=== PATIENT | male | born 1955 | race African-American/Black ===

== ENCOUNTER 2017-09-17 09:14 | Day surgery (SDC) | payer BC, OTHER ==
[2017-09-15 09:23] LABS: Absolute Lymphocytes (CBC) 1.5 K/uL (0.7-4.9); Absolute Monocytes 0.5 K/uL (0.1-1.3); Absolute Neutrophil 4.8 K/uL (1.8-8.0); Basophils % 0.5 % (0-1.3); Eosinophils % 2.7 % (0-4.4); Hematocrit 39.4 % (39.6-49.0); MCH 25.6 pg (27.0-35.0); MCV 79.8 fL (80-100); MPV 8.3 fL (7.6-11.3); Monocytes % 7.1 % (3.3-12.3); RBC Red Blood Cell Count 4.94 M/uL (4.33-5.43)
[2017-09-15 10:00] LABS: BUN Blood Urea Nitrogen 9 mg/dL (6-20)
[2017-09-15 10:01] LABS: Potassium 4.2 mEq/L (3.6-5.0)
--- NOTE | 2017-09-15 16:30 | EKG ---
Test Date: 2017-09-15 Test Time: 08:57:42 Job Training Specialist: DARIELA MEASUREMENT RESULTS: Intervals: Rate: 77 OK: 176 QRSD: 76 QT: 368 QTc: 416 [place]: P: 66 OK: 176 QRS: 55 T: 50 INTERPRETIVE STATEMENTS: Normal sinus rhythm Possible Left atrial enlargement Borderline ECG No previous ECG available for comparison Electronically Signed On 09-15-17 16:29:37 CDT by Silver Driver
[~2017-09-17 09:14] MED LIST: CEFAZOLIN/SWI 2gm 2 GM/20 ML SYR IV SCH
[2017-09-17] MEDS ORDERED: Ringers Lactate 1,000 ML IV ONE (09:25)
[2017-09-17] MEDS ORDERED: CEFAZOLIN/SWI 1gm 1 GM/10 ML SYR ONE (09:25)
[2017-09-17] MEDS ORDERED: MIDAZOLAM HCL 2 MG/2 ML INJ ONE (10:07)
[2017-09-17] MEDS ORDERED: LIDOCAINE 1% MPF 5 ML VIAL ONE (10:07)
[2017-09-17] MEDS ORDERED: PROPOFOL 200 MG/20 ML VIAL IV ONE (10:07)
[2017-09-17] MEDS ORDERED: ROCURONIUM 50 MG/5 ML VIAL IV ONE (10:08)
[2017-09-17] MEDS ORDERED: FENTANYL CITR 250 MCG/5 ML ONE (10:09)
[2017-09-17] MEDS: BUPIVACA 0.25%/EPI 0.0005%/PF 30 ML VIAL ONE ×2 (10:41→10:50)
[2017-09-17] MEDS ORDERED: KETOROLAC 30 MG/ML INJ ONE (10:44)
[2017-09-17] MEDS ORDERED: ONDANSETRON 4 MG/2 ML VIAL ONE (10:45)
--- NOTE | 2017-09-17 11:40 | P.OP ---
Preoperative diagnosis: LEFT inguinal hernia Postoperative diagnosis: LEFT inguinal hernia Primary procedure: open LEFT inguinal hernia repair with mesh Anesthesia: GETA + Local Estimated blood loss: <10cc Specimen: Cord Lipoma Findings: Large indirect inguinal hernia , external oblique aponeurosis very thin Complications: None Implants: Large plug and patch hernia repair system Transferred to: Recovery Room Condition: Good
[2017-09-17] MEDS ORDERED: HYDROCODONE/APAP 5/325 MG TAB ONE (13:13)
--- NOTE | 2017-09-17 23:35 | OP ---
Date of Procedure: 09/17/2017 Surgeon: Venancio Wu MD, Preoperative Diagnosis: Left inguinal hernia. Postoperative Diagnosis: Left inguinal hernia. Procedure Performed: Open left inguinal hernia repair with mesh, plug and patch repair system. Anesthesia: General endotracheal plus local with 0.25% Marcaine with epinephrine. Estimated Blood Loss: Less than 10 cc. Specimen: Cord lipoma. Findings: Large indirect inguinal hernia and external oblique aponeurosis was thin and almost oblite rated. Complications: None. Implants: Large plug and patch hernia repair system. Disposition: Transferred to recovery room in good condition. Procedure In Detail: After informed consent was obtained, the patient was brought to the operating r oom, prepped and draped in the usual sterile fashion. After adequate anesthesia was achieved, the ar ea of the left inguinal region was anesthetized appropriately and incised with a 15-blade down throug h subcutaneous tissues. Dissection continued down through Camper's fat and Ulisses's fascia to expose the external oblique aponeurosis. This was opened in a flap type creating skin flaps over the top o f this. However, the external oblique aponeurosis was found to be thin, friable, and almost oblitera venancio in some regions as it was paper thin. The cord structures were then identified and encircled wit h a David drain. After this was performed, a cord lipoma was noted to be found on the spermatic co rd structures adjacent to the indirect inguinal hernia which was appreciated, which had intestinal co ntents. The hernia sac was opened. The intestinal contents were returned to the normal anatomic pos ition. After placing the patient in Trendelenburg position, the cord lipoma was removed and ligated using 0 silk suture and electrocautery, sent off for pathologic examination. After the area was insp ected for hemostasis, the large mesh was determined to be optimal for the plug and patch repair syste m through the indirect inguinal deep ring. The deep ring was sized appropriately and using 4 interru pted 0 PDS sutures, securing to lateral edges, taking very thin bites, the mesh was secured to the no rmal anatomic position after returning the abdominal contents back to the normal anatomic position. The mesh was held in place without any additional maneuvers and was in a good anatomic position. The area was copiously irrigated multiple times and cleared and dried until clear. The patch system was then brought in, sized appropriately around the spermatic cord structures, securing it medially at t he pubic tubercle and on the medial and lateral shelving edge reconstituting the deep inguinal ring a s well overlying the previously placed plug system. After this was oriented properly and secured, th e area was copiously irrigated once again and the Camper's fat, Ulisses's fascia, and the external obl ique aponeurosis was closed en bloc over the top of this as the external oblique aponeurosis was esse ntially obliterated. The ilioinguinal and iliohypogastric nerves were protected throughout and the C amper's fat, Ulisses's fascia, and external oblique aponeurosis were closed with a running 3-0 Vicryl suture. The deep subcutaneous layer was then closed with interrupted 3-0 Vicryl with good approximat ion. The skin was then irrigated once again and closed with a 4-0 Monocryl in a running fashion. De rmabond placed over top. The patient tolerated the procedure well without evidence of complication a nd transferred to PACU in good condition. All counts were correct at the end of the case. NAVIN/COLETTE Voice ID: [id number] Report ID: [id number]
== END 2017-09-17 13:57 | disposition home or self-care (01) ==
LOC: OR 09:14
PROVIDERS: ATTEND Surgery
PROC: 0YU60JZ Supplement Left Inguinal Region with Synthetic Substitute, Open Approach (ICD-10-PCS; principal; 2017-09-17 10:30)
DX: K40.90 Unilateral inguinal hernia, without obstruction or gangrene, not specified as recurrent (principal); Z80.0 Family history of malignant neoplasm of digestive organs; Z80.8 Family history of malignant neoplasm of other organs or systems
CPT/HCPCS: 36415; 80051; 82565; 84520; 85025; 88304; 93005; J0690; J2250; J2405

== ENCOUNTER 2022-04-21 08:20 | Observation (INO) | payer BC, OTHER ==
[2022-04-18 11:50] LABS: Absolute Lymphocytes (CBC) 1.8 K/uL (0.7-4.9); Hematocrit 38.4 % (39.6-49.0); Lymphocytes % 20.9 % (15.3-44.8); MCV 80.7 fL (80-100); MPV 7.7 fL (7.6-11.3); RBC Red Blood Cell Count 4.76 M/uL (4.33-5.43)
[2022-04-18 12:03] LABS: Potassium 3.9 mmol/L (3.5-5.1)
[2022-04-21] MEDS ORDERED: Ringers Lactate 1,000 ML IV ONE (09:13)
--- NOTE | 2022-04-21 09:26 | P.HP ---
Date of Service: 04/21/22 PC: This 66-year-old male presents for a laparoscopic repair of recurrent left inguinal hernia. HPC: Patient has been having pain and discomfort for the last few months. Describes as a sharp pinching affect as well as pressure and a bulge in his left groin. On work-up was found to have recurrence of his left inguinal hernia. PSHx: Hernia surgery as described PMHx: Hypertension, CAD Social Hx: No known allergies Sys R: No cough, wheeze, shortness of breath. No chest pain or palpitations. Denies any urinary complaints O/E: Awake alert vital signs are stable HEENT: Within normal limits Chest: Air entry equal bilaterally Abd: Soft nontender in the left groin has positive cough impulse and reducible bulge in that area [place]: Intact Data: Has recurrent left inguinal hernia Impression: Recurrent left inguinal hernia Plan: I will taken the operating room for laparoscopic possible open repair of this recurrent left inguinal hernia. The risks of this procedure have been discussed. The possibility of bleeding, infection, injury to bowel blood vessels and surrounding structures were outlined. Possible recurrence and chronic pain were also described. He understands and wants us to proceed.
[2022-04-21] MEDS: CEFAZOLIN SODIUM 1 GM/VIAL ONE ×2 (09:41→10:21)
[2022-04-21] MEDS ORDERED: ROCURONIUM 50 MG/5 ML VIAL IV ONE (10:00)
[2022-04-21] MEDS ORDERED: FENTANYL CITR 100 MCG/2 ML ONE (10:00)
[2022-04-21] MEDS ORDERED: LIDOCAINE 2% MPF 5 ML VIAL ONE (10:00)
[2022-04-21] MEDS ORDERED: MIDAZOLAM HCL 2 MG/2 ML INJ ONE (10:00)
[2022-04-21] MEDS ORDERED: ONDANSETRON 4 MG/2 ML VIAL ONE (10:00)
[2022-04-21] MEDS ORDERED: propofoL 200 MG/20 ML VIAL IV ONE (10:00)
[2022-04-21 10:08] LABS: SARS-CoV-2 Antigen Rapid Res Negative (Negative)
[2022-04-21] MEDS ORDERED: KETOROLAC 30 MG/ML INJ ONE (10:39)
[2022-04-21] MEDS ORDERED: dexAMETHasone 10 MG/ML VIAL ONE (10:39)
[2022-04-21] MEDS ORDERED: EPHEDRINE SULF 50 MG/ML VIAL ONE (10:56)
[2022-04-21] MEDS ORDERED: GLYCOPYRROLATE 0.2 MG/ML SYR ONE (11:33)
[2022-04-21] MEDS ORDERED: NEOSTIGMINE 1 MG/ML -5 ML ONE (11:33)
--- NOTE | 2022-04-21 11:50 | P.OP ---
Preoperative diagnosis: Recurrent left inguinal hernia Postoperative diagnosis: Recurrent left indirect inguinal hernia Primary procedure: Laparoscopic repair of recurrent left indirect inguinal hernia open [SERGO] Anesthesia: General Estimated blood loss: Less than 10 cc Specimen: None sent Operative Technique: The patient brought the operating room and placed supine on the table. After the induction of adequate general endotracheal anesthesia, the area of the abdomen was prepped with a DuraPrep solution, a Tomlinson catheter was inserted, and he was draped in usual aseptic manner. Attention was turned towards the umbilicus. After injecting with 0.25% Marcaine, a subumbilical incision was made. This was brought down through the skin and subcutaneous tissue. The Visiport was now used to enter the peritoneal cavity and created pneumoperitoneum to approximately 12 mmHg. With the patient placed in Trendelenburg, we will visualize the left and right inguinal areas. On the right side it was found to be intact, there was no evidence of any hernia. Attention was turned towards the left. We could see that he had a recurrent indirect inguinal hernia on the left side. The peritoneum was opened from well lateral towards medial. This superior flap was now dissected downwards to expose the spermatic cord, our inguinal hernia sac, and the previous placed plug. The tissue was dissected away from this area. The hernia sac was dissected off of the previous repair. Having cleared the area well we were now able to place a piece of left medium mesh into the peritoneal cavity. This was positioned to anchor it just medial to the Kaushal's ligament. This was held in place with a tacker. Another tack was placed out laterally. One was placed inferiorly gently just to hold the inferior edge down. The peritoneum was now grasped and reapproximated in its normal anatomical position. Good coverage of the mesh having been achieved, there was inspected for air and required hemostasis. This having been done the pneumoperitoneum was fully collapsed, the trochars removed, and the umbilical trocar defect was approximated with an absorbable suture. Luxora were then applied to the skin. At the end of the procedure the patient was in a stable condition when sent to the recovery room. Needle sponge instrument count were correct. No drains were placed. Complications: None Transferred to: Recovery Room Condition: Good
[2022-04-21] MEDS ORDERED: HYDROCODONE/APAP 7.5/325 MG TAB PO PRN (12:24)
[2022-04-21] MEDS ORDERED: ONDANSETRON 4 MG/2 ML VIAL IV PRN (12:24)
--- OUTSIDE RECORDS SUMMARY | 2022-04-21 13:12 | XMS REPORT | Continuity of Care Document ---
:1955 Author Organization [facility] t Address [address] [place] [address] Care Team Providers Name Role Phone Contreras CALVILLO, Garrick Primary Care Physician [phone] Yvonne PT, Jenniffer T Attending Clinician Unavailable Leana Obregon MD Attending Clinician LEANA OBREGON Attending Clinician Unavailable Chrystal Archer PTA Attending Clinician Unavailable Elo Lopez PTA Attending Clinician Unavailable HANS BHAGAT Attending Clinician Unavailable Vaccine, [facility] Attending Clinician Unavailable Hans Bhagat DO Attending Clinician Doctor Unassigned, [place] Attending Clinician Unavailable Radiology Attending Clinician Unavailable RADIOLOGY Attending Clinician Unavailable KAYODE CHAPIN Attending Clinician Unavailable Kayode Chapin DO Attending Clinician MOI CAST Attending Clinician Unavailable Moi Cast MD Attending Clinician Nurse, [facility]c Pob Immunization Attending Clinician Unavailable MOI CAST Admitting Clinician Unavailable Moi Cast MD Admitting Clinician KAYODE CHAPIN Admitting Clinician Unavailable Payers Payer Name Policy Type Policy Number Effective Date Expiration Date S [place] Problems Condition Condition Condition Status Onset Resolution Last Treating Co mments Source Name Details Category Date Date Treatment Clinician Date 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 0-03 ity of shoulder shoulder 00:00: [place] pain pain 00 Medical Branch Neck pain Neck pain Disease Active 2021-06 Uni vers 0-03 ity of 00:00: [place] 00 Medical Branch Decreased Decreased Disease Active 2021-06 Uni vers range of range of 0-03 [place] of motion [place] 00 [place] shoulder shoulder Branch Allergies, Adverse Reactions, Alerts Allergy Allergy Status Severity Reaction(s) Onset Inactive Treating Comm ents Source Name Type Date Date Clinician Sulfa Propensi Active (Sulfona ty to 5-11 mide adverse 00:00: Antibiot reaction 00 ics) to drug NO KNOWN Drug Active Univers ALLERGIE Class ity of S [facility] Social History Social Habit Start Date Stop Date Quantity Comments Source History SDOH University o f Alcohol Frequency [place] [facility] ed[facility] History SDOH University o f Alcohol Std [place] [facility] Drinks Branch History SDOH University o f Alcohol Binge [place] [facility] al Branch Exposure to 2022-01-21 2022-01-31 Not sure [facility] SARS-CoV-2 00:00:00 16:04:00 [facility] [place] [facility] (event) Branch Alcohol intake 2021-12-15 2021-12-15 Current drinker Unive rsity of 00:00:00 00:00:00 of alcohol [facility] [place] [facility] (finding) [place] Tobacco use and 2017-09-02 2017-09-02 Smokeless tobacco Un iversity of exposure 00:00:00 00:00:00 non-user [facility] Alcohol Comment 2017-09-02 2017-09-02 Social Drinker Unive rsity of 00:00:00 00:00:00 [facility] Sex [birth year] Universit y of 00:00:00 00:00:00 [facility] Smoking Status Start Date Stop Date Source Never smoked tobacco [facility] [place] [facility] Medications Ordered Filled Start Stop Current Ordering Indication Dosage Frequency Signature Comments Components Source Medication Medication Date Date Medication? Clinician (SIG) Name Name TAKE 2021-06 No TABLET BY 0-14 MOUTH TWICE 00:00: DAILY 00 TAKE 2021-06 No TABLET BY 0-14 MOUTH TWICE 00:00: DAILY 00 PEG-3350/EL 202-0 No ECTROLYTES 9-02 236 GM SOLR 00:00: 00 PEG-3350/EL 2021-0 No ECTROLYTES 9-02 236 GM SOLR 00:00: 00 PEG-3350/EL 2-0 No ECTROLYTES 9-02 236 GM SOLR 00:00: 00 &lt 2022-0 No 100 7-25 00:00: 00 APPLY 2022-0 No TOPICALLY 7-25 TO THE 00:00: AFFECTED 00 AREA DAILY &lt 2-0 No 500 7-25 00:00: 00 TAKE ONE OR 2021-0 No 4 TWO TABLETS 7-25 BY MOUTH 15 00:00: MINUTES 00 PRIOR TO THE PREP DOSE &lt 2021-0 No 100 7-25 00:00: 00 APPLY 2022-0 No TOPICALLY 7-25 TO THE 00:00: AFFECTED 00 AREA DAILY &lt 2022-0 No 100 7-25 00:00: 00 APPLY 2022-0 No TOPICALLY 7-25 TO THE 00:00: AFFECTED 00 AREA DAILY &lt 2022-0 No 500 7-25 00:00: 00 TAKE ONE OR 2021-0 No 4 TWO TABLETS 7-25 BY MOUTH 15 00:00: MINUTES 00 PRIOR TO THE PREP DOSE &lt 2-0 No 500 7-25 00:00: 00 TAKE ONE OR 2021-0 No 4 TWO TABLETS 7-25 BY MOUTH 15 00:00: MINUTES 00 PRIOR TO THE PREP DOSE &lt 2-0 No 100 7-25 00:00: 00 APPLY 2022-0 No TOPICALLY 7-25 TO THE 00:00: AFFECTED 00 AREA DAILY &lt 2-0 No 500 7-25 00:00: 00 TAKE ONE OR 2021-0 No 4 TWO TABLETS 7-25 BY MOUTH 15 00:00: MINUTES 00 PRIOR TO THE PREP DOSE acetaminoph 2021-0 2021- No 1000mg 1,000 mg, Univers en 18 07-18 Oral, ity of (TYLENOL) 05:15: 05:05 ONCE, 1 [place] tablet 00 :00 dose, On Medical 1,000 mg Mon Branch 12/16/21 at 0015, RACHELL ibuprofen 0 2021- No 600mg 600 mg, Uni vers (IBU) 12-16 Oral, ity of tablet 600 03:45: 03:47 ONCE, 1 [place] mg 00 :00 dose, On Medical Sun Branch 12/15/21 at 2245, RACHELL psyllium 2021- No 1{packe Take 1 Uni vers (METAMUCIL 12-15 t} Packet by ity of FIBER 22:41: 00:00 mouth [place] SINGLES) 24 :00 daily. Medical 3.4 gram Branch packet chlorphenir Yes [id number] 4mg Take 1 [facility] amine 4 mg 7-17 tablet by ity of tablet 00:00: mouth [place] 00 every 6 Medical (six) Branch hours as needed for Allergies or Runny nose. calcium/mag 0 Yes [id number] 1{each} Take 1 Univers nesium/zinc 7-17 Each by ity o f (CALCIUM-MA 00:00: mouth [place] GNESUIUM-ZI 00 daily. Medica l [place]) Branch 333-133-5 mg Tab benzonatate 0 Yes [id number] 100mg Take 1 Univers 100 mg 7-17 capsule by ity of capsule 00:00: mouth 3 [place] 00 (three) Medical times Branch daily as needed for Cough. nirmatrelvi 0 Yes [id number] 3{tbl} Take 3 Univers r-ritonavir 7-17 tablets by it y of (PAXLOVID, 00:00: mouth in [place] EUA,) 150 00 the Medical mg x 2- 100 morning Branc h mg tablet and 3 tablets in the evening. chlorphenir 0 Yes [id number] 4mg Take 1 Univers amine 4 mg 7-17 tablet by ity of tablet 00:00: mouth [place] 00 every 6 Medical (six) Branch hours as needed for Allergies or Runny nose. calcium/mag 2021-0 Yes [id number] 1{each} Take 1 Univers nesium/zinc 7-17 Each by ity o f (CALCIUM-MA 00:00: mouth [place] GNESUIUM-ZI 00 daily. Medica l [place]) Branch 333-133-5 mg Tab benzonatate 2022-0 Yes [id number] 100mg Take 1 Univers 100 mg 7-17 capsule by ity of capsule 00:00: mouth 3 [place] 00 (three) Medical times Branch daily as needed for Cough. nirmatrelvi 2021-0 Yes [id number] 3{tbl} Take 3 Univers r-ritonavir 7-17 tablets by it y of (PAXLOVID, 00:00: mouth in [place] EUA,) 150 00 the Medical mg x 2- 100 morning Branc h mg tablet and 3 tablets in the evening. chlorphenir 2022-0 Yes [id number] 4mg Take 1 [facility] amine 4 mg 7-17 tablet by ity of tablet 00:00: mouth [place] 00 every 6 Medical (six) Branch hours as needed for Allergies or Runny nose. calcium/mag 2-0 Yes [id number] 1{each} Take 1 Univers nesium/zinc 7-17 Each by ity o f (CALCIUM-MA 00:00: mouth [place] GNESUIUM-ZI 00 daily. Medica l [place]) Branch 333-133-5 mg Tab benzonatate 2021-0 Yes [id number] 100mg Take 1 Univers 100 mg 7-17 capsule by ity of capsule 00:00: mouth 3 [place] 00 (three) Medical times Branch daily as needed for Cough. nirmatrelvi 2021-0 Yes [id number] 3{tbl} Take 3 Univers r-ritonavir 7-17 tablets by it y of (PAXLOVID, 00:00: mouth in [place] EUA,) 150 00 the Medical mg x 2- 100 morning Branc h mg tablet and 3 tablets in the evening. chlorphenir 2022-0 Yes [id number] 4mg Take 1 [facility] amine 4 mg 7-17 tablet by ity of tablet 00:00: mouth [place] 00 every 6 Medical (six) Branch hours as needed for Allergies or Runny nose. calcium/mag 2-0 Yes [id number] 1{each} Take 1 Univers nesium/zinc 7-17 Each by ity o f (CALCIUM-MA 00:00: mouth [place] GNESUIUM-ZI 00 daily. Medica l [place]) Branch 333-133-5 mg Tab benzonatate 2022-0 Yes [id number] 100mg Take 1 Univers 100 mg 7-17 capsule by ity of capsule 00:00: mouth 3 [place] 00 (three) Medical times Branch daily as needed for Cough. nirmatrelvi 2021-0 Yes [id number] 3{tbl} Take 3 Univers r-ritonavir 7-17 tablets by it y of (PAXLOVID, 00:00: mouth in [place] EUA,) 150 00 the Medical mg x 2- 100 morning Branc h mg tablet and 3 tablets in the evening. chlorphenir 2021-0 Yes [id number] 4mg Take 1 [facility] amine 4 mg 7-17 tablet by ity of tablet 00:00: mouth [place] 00 every 6 Medical (six) Branch hours as needed for Allergies or Runny nose. calcium/mag 2021-0 Yes [id number] 1{each} Take 1 Univers nesium/zinc 7-17 Each by ity o f (CALCIUM-MA 00:00: mouth [place] GNESUIUM-ZI 00 daily. Medica l [place]) Branch 333-133-5 mg Tab benzonatate 2021-0 Yes [id number] 100mg Take 1 Univers 100 mg 7-17 capsule by ity of capsule 00:00: mouth 3 [place] 00 (three) Medical times Branch daily as needed for Cough. nirmatrelvi 0 Yes [id number] 3{tbl} Take 3 Univers r-ritonavir 7-17 tablets by it y of (PAXLOVID, 00:00: mouth in [place] EUA,) 150 00 the Medical mg x 2- 100 morning Branc h mg tablet and 3 tablets in the evening. chlorphenir 2021-0 Yes [id number] 4mg Take 1 [facility] amine 4 mg 7-17 tablet by ity of tablet 00:00: mouth [place] 00 every 6 Medical (six) Branch hours as needed for Allergies or Runny nose. calcium/mag 2021-0 Yes [id number] 1{each} Take 1 Univers nesium/zinc 7-17 Each by ity o f (CALCIUM-MA 00:00: mouth [place] GNESUIUM-ZI 00 daily. Medica l [place]) Branch 333-133-5 mg Tab benzonatate 2021-0 Yes [id number] 100mg Take 1 Univers 100 mg 7-17 capsule by ity of capsule 00:00: mouth 3 [place] 00 (three) Medical times Branch daily as needed for Cough. nirmatrelvi 2021-0 Yes [id number] 3{tbl} Take 3 Univers r-ritonavir 7-17 tablets by it y of (PAXLOVID, 00:00: mouth in [place] EUA,) 150 00 the Medical mg x 2- 100 morning Branc h mg tablet and 3 tablets in the evening. chlorphenir 2021-0 Yes [id number] 4mg Take 1 [facility] amine 4 mg 7-17 tablet by ity of tablet 00:00: mouth [place] 00 every 6 Medical (six) Branch hours as needed for Allergies or Runny nose. calcium/mag 2021-0 Yes [id number] 1{each} Take 1 Univers nesium/zinc 7-17 Each by ity o f (CALCIUM-MA 00:00: mouth [place] GNESUIUM-ZI 00 daily. Medica l [place]) Branch 333-133-5 mg Tab benzonatate 2021-0 Yes [id number] 100mg Take 1 Univers 100 mg 7-17 capsule by ity of capsule 00:00: mouth 3 [place] 00 (three) Medical times Branch daily as needed for Cough. nirmatrelvi 2021-0 Yes [id number] 3{tbl} Take 3 Univers r-ritonavir 7-17 tablets by it y of (PAXLOVID, 00:00: mouth in [place] EUA,) 150 00 the Medical mg x 2- 100 morning Branc h mg tablet and 3 tablets in the evening. chlorphenir 2021-0 Yes [id number] 4mg Take 1 [facility] amine 4 mg 7-17 tablet by ity of tablet 00:00: mouth [place] 00 every 6 Medical (six) Branch hours as needed for Allergies or Runny nose. calcium/mag 2021-0 Yes [id number] 1{each} Take 1 Univers nesium/zinc 7-17 Each by ity o f (CALCIUM-MA 00:00: mouth [place] GNESUIUM-ZI 00 daily. Medica l [place]) Branch 333-133-5 mg Tab benzonatate 2021-0 Yes [id number] 100mg Take 1 Univers 100 mg 7-17 capsule by ity of capsule 00:00: mouth 3 [place] 00 (three) Medical times Branch daily as needed for Cough. nirmatrelvi 2021-0 Yes [id number] 3{tbl} Take 3 Univers r-ritonavir 7-17 tablets by it y of (PAXLOVID, 00:00: mouth in [place] EUA,) 150 00 the Medical mg x 2- 100 morning Branc h mg tablet and 3 tablets in the evening. chlorphenir 2022-0 Yes [id number] 4mg Take 1 [facility] amine 4 mg 7-17 tablet by ity of tablet 00:00: mouth [place] 00 every 6 Medical (six) Branch hours as needed for Allergies or Runny nose. calcium/mag 2022-0 Yes [id number] 1{each} Take 1 Univers nesium/zinc 7-17 Each by ity o f (CALCIUM-MA 00:00: mouth [place] GNESUIUM-ZI 00 daily. Medica l [place]) Branch 333-133-5 mg Tab benzonatate 2021-0 Yes [id number] 100mg Take 1 Univers 100 mg 7-17 capsule by ity of capsule 00:00: mouth 3 [place] (three) Medical times Branch daily as needed for Cough. nirmatrelvi 2021-0 Yes [id number] 3{tbl} Take 3 Univers r-ritonavir 7-17 tablets by it y of (PAXLOVID, 00:00: mouth in [place] EUA,) 150 00 the Medical mg x 2- 100 morning Branc h mg tablet and 3 tablets in the evening. chlorphenir 2-0 Yes [id number] 4mg Take 1 [facility] amine 4 mg 7-17 tablet by ity of tablet 00:00: mouth [place] 00 every 6 Medical (six) Branch hours as needed for Allergies or Runny nose. calcium/mag 2-0 Yes [id number] 1{each} Take 1 Univers nesium/zinc 7-17 Each by ity o f (CALCIUM-MA 00:00: mouth [place] GNESUIUM-ZI 00 daily. Medica l [place]) Branch 333-133-5 mg Tab benzonatate 2022-0 Yes [id number] 100mg Take 1 Univers 100 mg 7-17 capsule by ity of capsule 00:00: mouth 3 [place] 00 (three) Medical times Branch daily as needed for Cough. nirmatrelvi 2022-0 Yes [id number] 3{tbl} Take 3 Univers r-ritonavir 7-17 tablets by it y of (PAXLOVID, 00:00: mouth in [place] EUA,) 150 00 the Medical mg x 2- 100 morning Branc h mg tablet and 3 tablets in the evening. chlorphenir 2021-0 Yes [id number] 4mg Take 1 [facility] amine 4 mg 7-17 tablet by ity of tablet 00:00: mouth [place] 00 every 6 Medical (six) Branch hours as needed for Allergies or Runny nose. calcium/mag 2021-0 Yes [id number] 1{each} Take 1 Univers nesium/zinc 7-17 Each by ity o f (CALCIUM-MA 00:00: mouth [place] GNESUIUM-ZI 00 daily. Medica l [place]) Branch 333-133-5 mg Tab benzonatate 2021-0 Yes [id number] 100mg Take 1 Univers 100 mg 7-17 capsule by ity of capsule 00:00: mouth 3 [place] 00 (three) Medical times Branch daily as needed for Cough. nirmatrelvi 2021-0 Yes [id number] 3{tbl} Take 3 Univers r-ritonavir 7-17 tablets by it y of (PAXLOVID, 00:00: mouth in [place] EUA,) 150 00 the Medical mg x 2- 100 morning Branc h mg tablet and 3 tablets in the evening. chlorphenir 2021-0 Yes [id number] 4mg Take 1 Univers amine 4 mg 7-17 tablet by ity of tablet 00:00: mouth [place] 00 every 6 Medical (six) Branch hours as needed for Allergies or Runny nose. calcium/mag 2021-0 Yes [id number] 1{each} Take 1 Univers nesium/zinc 7-17 Each by ity o f (CALCIUM-MA 00:00: mouth [place] GNESUIUM-ZI 00 daily. Medica l [place]) Branch 333-133-5 mg Tab benzonatate 2021-0 Yes [id number] 100mg Take 1 Univers 100 mg 7-17 capsule by ity of capsule 00:00: mouth 3 [place] 00 (three) Medical times Branch daily as needed for Cough. nirmatrelvi 2021-0 Yes [id number] 3{tbl} Take 3 Univers r-ritonavir 7-17 tablets by it y of (PAXLOVID, 00:00: mouth in [place] EUA,) 150 00 the Medical mg x 2- 100 morning Branc h mg tablet and 3 tablets in the evening. vitamin 2021- No [id number] 1{tbl} Take 1 Univers D3-folic 7-17 08-17 tablet by ity o f acid 125 00:00: 04:59 mouth [place] mcg (5,000 00 :00 daily for Medi anahi unit)-1 mg 30 days. Branc h Tab ciclopirox No 1% 0.77 % 09-25 topical 00:00: cream 00 ciclopirox No 1% 0.77 % - topical 00:00: cream 00 Dose No Unknown 09-25 00:00: 00 Dose 0 No Unknown 09-25 00:00: 00 water for Yes PRN, Univers irrigation 07-31 Starting ity o f irrigation 16:24: on Thu [place] solution 00 07/31/21 at Medica l 1024, Branch Until Discontinu ed, Routine, Intra-op simethicone Yes PRN, Univer s (GAS RELIEF 07-31 Starting ity of (SIMETHICON 16:24: on [place] E)) 40 00 07/31/21 at Medical mg/0.6 mL 1024, Branch drops Until Discontinu ed, Routine, Intra-op water for 2021- No PRN, Univers irrigation 07-31 Starting ity of irrigation 16:24: 19:16 on Thu [place] solution 00 :26 07/31/21 at Medica l 1024, Branch Until Thu07/31/21 at 1316, Routine, Intra-op simethicone 2021- No PRN, Unive rs (GAS RELIEF 07-31 Starting ity of (SIMETHICON 16:24: 19:16 on Thu [place] as E)) 40 00 :26 07/31/21 at Medical mg/0.6 mL 1024, Branch drops Until Thu07/31/21 at 1316, Routine, Intra-op lactated 2021- No 1000mL at 42 Unive rs ringers IV 3-02 03-02 mL/hr, ity of infusion 15:00: 14:56 1,000 mL, [place] as 1,000 mL 00 :00 IV Medical Infusion, Branch ONCE, 1 dose, On Thu07/31/21 at 0900, Routine, Endo Pre-op lactated 2021-0 2021- No 1000mL at 42 Unive rs ringers IV 3-02 03-02 mL/hr, ity of infusion 15:00: 14:56 1,000 mL, [place] as 1,000 mL 00 :00 IV Medical Infusion, Branch ONCE, 1 dose, On Thu07/31/21 at 0900, Routine, Endo Pre-op psyllium 2021-0 Yes 1{packe Take 1 Univ ers (METAMUCIL 3-02 t} Packet by ity of FIBER 11:16: mouth [place] SINGLES) 24 daily. Medical 3.4 gram Branch packet psyllium 2021-0 Yes 1{packe Take 1 Univ ers (METAMUCIL 3-02 t} Packet by ity of FIBER 11:16: mouth [place] SINGLES) 24 daily. Medical 3.4 gram Branch packet psyllium 2021-0 Yes 1{packe Take 1 Univ ers (METAMUCIL 3-02 t} Packet by ity of FIBER 11:16: mouth [place] SINGLES) 24 daily. Medical 3.4 gram Branch packet ciclopirox 2021-0 No 1% 0.77 % -12 topical 00:00: cream 00 ciclopirox 2021-0 No 1% 0.77 % -12 topical 00:00: cream 00 Dose 2021-0 No Unknown -12 00:00: 00 Dose 2021-0 No Unknown -12 00:00: 00 naproxen 2020-06 Yes [id number] 550mg Take 1 Univers sodium 1-11 tablet by ity of (ANAPROX 00:00: mouth 2 [place] DS) 550 mg 00 (two) Medical tablet times Branch daily with meals. methylPREDN 2020-06 Yes [id number] Take by Univers ISolone 1-11 mouth ity of (MEDROL, 00:00: SEE-INSTRU [place] THALIA,) 4 mg 00 CTIONS. Medica l tablets follow Branch package directions naproxen 2020-06 Yes [id number] 550mg Take 1 Univers sodium 1-11 tablet by ity of (ANAPROX 00:00: mouth 2 [place] DS) 550 mg 00 (two) Medical tablet times Branch daily with meals. methylPREDN 2020-06 Yes [id number] Take by Univers ISolone 1-11 mouth ity of (MEDROL, 00:00: SEE-INSTRU [place] THALIA,) 4 mg 00 CTIONS. Medica l tablets follow Branch package directions naproxen 2020-06 Yes [id number] 550mg Take 1 Univers sodium 1-11 tablet by ity of (ANAPROX 00:00: mouth 2 [place] DS) 550 mg 00 (two) Medical tablet times Branch daily with meals. methylPREDN 2020-06 Yes [id number] Take by Univers ISolone 11 mouth ity of (MEDROL, 00:00: SEE-INSTRU [place] as THALIA,) 4 mg 00 CTIONS. Medica l tablets follow Branch package directions naproxen 2020-06 Yes [id number] 550mg Take 1 Univers sodium 1-11 tablet by ity of (ANAPROX 00:00: mouth 2 [place] DS) 550 mg 00 (two) Medical tablet times Branch daily with meals. methylPREDN 2020-06 Yes [id number] Take by Univers ISolone 11 mouth ity of (MEDROL, 00:00: SEE-INSTRU [place] as THALIA,) 4 mg 00 CTIONS. Medica l tablets follow Branch package directions naproxen 2020-06 Yes [id number] 550mg Take 1 Univers sodium 1-11 tablet by ity of (ANAPROX 00:00: mouth 2 [place] DS) 550 mg 00 (two) Medical tablet times Branch daily with meals. methylPREDN 2020-06 Yes [id number] Take by Univers ISolone 11 mouth ity of (MEDROL, 00:00: SEE-INSTRU [place] as THALIA,) 4 mg 00 CTIONS. Medica l tablets follow Branch package directions naproxen 2020-06- No [id number] 550mg Take 1 Univers sodium 1-11 -17 tablet by ity of (ANAPROX 00:00: 00:00 mouth 2 [place] DS) 550 mg 00 :00 (two) Medical tablet times Branch daily with meals. methylPREDN 2020-06- No [id number] Take by Univers ISolone 11 -17 mouth ity of (MEDROL, 00:00: 00:00 [place] THALIA,) 4 mg 00 :00 CTIONS. Medica l tablets follow Branch package directions Dose 2020-0 No Unknown 5-12 00:00: 00 ciclopirox 2020-0 No 1% 0.77 % 5-12 topical 00:00: cream 00 Dose 2020-0 No Unknown 5-12 00:00: 00 ciclopirox 2020-0 No 1% 0.77 % 5-12 topical 00:00: cream 00 Dose 2020-0 No Unknown 5-12 00:00: 00 ciclopirox 2020-0 No 1% 0.77 % 5-12 topical 00:00: cream 00 Dose 2020-0 No Unknown 5- 00:00: 00 ciclopirox 2020-0 No 1% 0.77 % 5-12 topical 00:00: cream 00 triamcinolo 2019- No 1% ne 0-20 acetonide 00:00: 0.1 % 00 topical cream triamcinolo 2019- No 1% ne 0-20 acetonide 00:00: 0.1 % 00 topical cream triamcinolo 2019- No 1% ne 0-20 acetonide 00:00: 0.1 % 00 topical cream triamcinolo 2019- No 1% ne 0-20 acetonide 00:00: 0.1 % 00 topical cream ketoconazol 2019- No 2% e 2 % 0-14 topical 00:00: cream 00 ketoconazol 2019-06 No 2% e 2 % 0-14 topical 00:00: cream 00 terbinafine 2019-06 No 1mg HCl 250 mg 0-14 tablet 00:00: 00 terbinafine 2019-06 No 1mg HCl 250 mg 0-14 tablet 00:00: 00 ketoconazol 2019- No 2% e 2 % 0-14 topical 00:00: cream 00 terbinafine 2019-06 No 1mg HCl 250 mg 0-14 tablet 00:00: 00 ketoconazol 2019-06 No 2% e 2 % 0-14 topical 00:00: cream 00 terbinafine 2019-06 No 1mg HCl 250 mg 0-14 tablet 00:00: 00 diclofenac 2019-0 No 1mg sodium 75 7-16 mg 00:00: tablet,harvey 00 yed release diclofenac 2020-0 No 1mg sodium 75 7-16 mg 00:00: tablet,harvey 00 yed release diclofenac 2020-0 No 1mg sodium 75 7-16 mg 00:00: tablet,harvey 00 yed release diclofenac 2020-0 No 1mg sodium 75 7-16 mg 00:00: tablet,harvey 00 yed release neomycin-po 2020-0 No 2mg/mL- lymyxin-hyd 6-02 unit/mL rocort 3.5 00:00: -% mg-10,000 00 unit/mL-1 % ear drops,susp ciprofloxac 2020-0 No 1mg in 500 mg 6-02 tablet 00:00: 00 neomycin-po 2020-0 No 2mg/mL- lymyxin-hyd 6-02 unit/mL rocort 3.5 00:00: -% mg-10,000 00 unit/mL-1 % ear drops,susp ciprofloxac 2020-0 No 1mg in 500 mg 6-02 tablet 00:00: 00 neomycin-po 2020-0 No 2mg/mL- lymyxin-hyd 6-02 unit/mL rocort 3.5 00:00: -% mg-10,000 00 unit/mL-1 % ear drops,susp ciprofloxac 2020-0 No 1mg in 500 mg 6-02 tablet 00:00: 00 neomycin-po 2020-0 No 2mg/mL- lymyxin-hyd 6-02 unit/mL rocort 3.5 00:00: -% mg-10,000 00 unit/mL-1 % ear drops,susp ciprofloxac 2020-0 No 1mg in 500 mg 6-02 tablet 00:00: 00 neomycin-po 2020-0 No 2mg/mL- lymyxin-hyd 5-12 unit/mL rocort 3.5 00:00: -% mg-10,000 00 unit/mL-1 % ear drops,susp neomycin-po 2020-0 No 2mg/mL- lymyxin-hyd 5-12 unit/mL rocort 3.5 00:00: -% mg-10,000 00 unit/mL-1 % ear drops,susp neomycin-po 2020-0 No 2mg/mL- lymyxin-hyd 5-12 unit/mL rocort 3.5 00:00: -% mg-10,000 00 unit/mL-1 % ear drops,susp neomycin-po 2020-0 No 2mg/mL- lymyxin-hyd 5-12 unit/mL rocort 3.5 00:00: -% mg-10,000 00 unit/mL-1 % ear drops,susp Ciprodex 2020-0 No 1% 0.3 %-0.1 % 5-11 ear 00:00: drops,suspe 00 nsion Augmentin 2020-0 No 1mg 875 mg-125 5-11 mg tablet 00:00: 00 Ciprodex 2020-0 No 1% 0.3 %-0.1 % 5-11 ear 00:00: drops,suspe 00 nsion Augmentin 2020-0 No 1mg 875 mg-125 5-11 mg tablet 00:00: 00 Ciprodex 2020-0 No 1% 0.3 %-0.1 % 5-11 ear 00:00: drops,suspe 00 nsion Augmentin 2020-0 No 1mg 875 mg-125 5-11 mg tablet 00:00: 00 Ciprodex 2020-0 No 1% 0.3 %-0.1 % 5-11 ear 00:00: drops,suspe 00 nsion Augmentin 2020-0 No 1mg 875 mg-125 5-11 mg tablet 00:00: 00 psyllium 2018-0 Yes 1{packe Take 1 Univ ers (METAMUCIL 4-04 t} Packet by ity of FIBER 15:50: mouth [place] SINGLES) 18 daily. Medical 3.4 gram Branch packet psyllium 2018-0 Yes 1{packe Take 1 Univ ers (METAMUCIL 4-04 t} Packet by ity of FIBER 15:50: mouth [place] SINGLES) 18 daily. Medical 3.4 gram Branch packet Immunizations Ordered Filled Date Status Comments Source Immunization Name Immunization Name influenza, seasonal 2022-03-10 Completed vaccine, 00:00:00 quadrivalent, adjuvanted, .5mL dose, preservative-free influenza, seasonal 2022-03-10 Completed vaccine, 00:00:00 quadrivalent, adjuvanted, .5mL dose, preservative-free SARS-COV-2 COVID-19 2022-02-21 Completed Unive rsity of VACCINE 18 YRS+, 00:00:00 [place] Me dical BIVALENT 0.5ML, IM, Branc h (MODERNA BOOSTER) SARS-COV-2 COVID-19 2022-02-21 Completed Unive rsity of VACCINE 18 YRS+, 00:00:00 [place] Me dical BIVALENT 0.5ML, IM, Branc h (MODERNA BOOSTER) SARS-COV-2 COVID-19 2022-02-21 Completed Unive rsity of VACCINE 18 YRS+, 00:00:00 [place] Me dical BIVALENT 0.5ML, IM, Branc h (MODERNA BOOSTER) SARS-COV-2 COVID-19 2022-02-21 Completed Unive rsity of VACCINE 18 YRS+, 00:00:00 [place] Me dical BIVALENT 0.5ML, IM, Branc h (MODERNA BOOSTER) SARS-COV-2 COVID-19 2022-02-21 Completed Unive rsity of VACCINE 18 YRS+, 00:00:00 [place] Me dical BIVALENT 0.5ML, IM, Branc h (MODERNA BOOSTER) SARS-COV-2 COVID-19 2022-02-21 Completed Unive rsity of VACCINE 12 YRS+, 00:00:00 [place] Me dical BIVALENT 0.5ML, IM, Branc h (MODERNA BOOSTER) SARS-COV-2 COVID-19 2022-02-21 Completed Unive rsity of VACCINE 12 YRS+, 00:00:00 [place] Me dical BIVALENT 0.5ML, IM, Branc h (MODERNA BOOSTER) SARS-COV-2 COVID-19 2021-04-12 Completed Unive rsity of MODERNA VACCINE 00:00:00 [place] Med ical Branch SARS-COV-2 COVID-19 2021-04-12 Completed Unive rsity of MODERNA VACCINE 00:00:00 [place] Med ical Branch SARS-COV-2 COVID-19 2021-04-12 Completed Unive rsity of MODERNA 12+ YRS 00:00:00 [place] Med ical VACCINE Branch SARS-COV-2 COVID-19 2021-04-12 Completed Unive rsity of MODERNA 12+ YRS 00:00:00 [place] Med ical VACCINE Branch SARS-COV-2 COVID-19 2021-04-12 Completed Unive rsity of MODERNA 12+ YRS 00:00:00 [place] Med ical VACCINE Branch SARS-COV-2 COVID-19 2021-04-12 Completed Unive rsity of MODERNA 12+ YRS 00:00:00 [place] [facility] VACCINE [facility] SARS-COV-2 COVID-19 2021-04-12 Completed Unive rsity of MODERNA 12+ YRS 00:00:00 [place] [facility] SARS-COV-2 COVID-19 2021-04-12 Completed Unive rsity of MODERNA 12+ YRS 00:00:00 [place] [facility] V[facility] SARS-COV-2 COVID-19 2021-04-12 Completed Unive rsity of MODERNA 12+ YRS 00:00:00 [place] [facility] V[facility] SARS-COV-2 COVID-19 2021-04-12 Completed Unive rsity of MODER[place] 12+ YRS 00:00:00 [place] [facility] ical VACCINE Branch SARS-COV-2 COVID-19 2021-04-12 Completed Unive rsity of MODERNA 12+ YRS 00:00:00 [place] [facility] ical VACCINE Branch SARS-COV-2 COVID-19 2021-04-12 Completed Unive rsity of MODERNA 12+ YRS 00:00:00 [place] [facility] ical VACCINE Branch SARS-COV-2 COVID-19 2021-04-12 Completed Unive rsity of MODERNA 12+ YRS 00:00:00 [place] [facility] ical VACCINE Branch SARS-COV-2 COVID-19 2021-04-12 Completed Unive rsity of [place] VACCINE 00:00:00 [place] [facility] ical Branch SARS-COV-2 COVID-19 2021-04-12 Completed Unive rsity of [place] VACCINE 00:00:00 [facility] ical Branch SARS-COV-2 COVID-19 2021-04-12 Completed Unive rsity of [place] VACCINE 00:00:00 [facility] ical Branch influenza, 2021-04-08 Completed high-dose, 00:00:00 quadrivalent influenza, 2021-04-08 Completed high-dose, 00:00:00 quadrivalent influenza, 2021-04-08 Completed high-dose, 00:00:00 quadrivalent influenza, 2021-04-08 Completed high-dose, 00:00:00 quadrivalent Influenza, 2016-03-06 Completed seasonal, inj 00:00:00 Influenza, 2016-03-06 Completed seasonal, inj 00:00:00 Influenza, 2016-03-06 Completed seasonal, inj 00:00:00 Influenza, 2016-03-06 Completed seasonal, inj 00:00:00 Tdap Unknown Completed Tdap Unknown Completed Tdap Unknown Completed Tdap Unknown Completed Vital Signs Vital Name Observation Time Observation Value Comments Source Systolic blood 2021-12-16 05:18:00 145 mm[Hg] [facility] of [facility] [place] [facility] Diastolic blood 2021-12-16 05:18:00 89 mm[Hg] [facility] [place] [facility] Heart rate 2021-12-16 05:18:00 100 /min [facility] [place] [facility] Body temperature 2021-12-16 05:18:00 38.61 Nelda [facility] [place] [facility] Respiratory rate 2021-12-16 05:18:00 18 /min [facility] [place] [facility] Oxygen saturation in 2021-12-16 05:18:00 98 /min University of Arterial blood by [facility] Pulse oximetry Branch Body height 2021-12-16 03:39:00 170.2 cm [facility] [place] [facility] Body weight 2021-12-16 03:39:00 106.142 kg [facility] [place] [facility] BMI 2021-12-16 03:39:00 36.65 kg/m2 [facility] [place] [facility] Heart rate 2021-07-31 16:55:00 76 /min [facility] [place] [facility] Respiratory rate 2021-07-31 16:55:00 15 /min [facility] [place] [facility] Oxygen saturation in 2021-07-31 16:55:00 99 /min [facility] of Arterial blood by [facility] Pulse oximetry Branch Systolic blood 2021-07-31 16:53:00 139 mm[Hg] [facility] [place] [facility] Diastolic blood 2021-07-31 16:53:00 87 mm[Hg] [facility] [place] [facility] Body temperature 2021-07-31 16:41:00 36.39 Nelda [facility] [place] [facility] Body height 2021-07-31 13:15:00 170.2 cm [facility] [place] [facility] Body weight 2021-07-31 13:15:00 106.142 kg [facility] [place] [facility] BMI 2021-07-31 13:15:00 36.65 kg/m2 [facility] [place] [facility] Systolic blood 2021-07-31 16:41:00 110 mm[Hg] [facility] [place] [facility] Diastolic blood 2021-07-31 16:41:00 72 mm[Hg] [facility] [place] [facility] Body temperature 2021-07-31 16:41:00 36.39 Nelda [facility] [place] [facility] Heart rate 2021-07-31 14:28:00 85 /min [facility] [place] [facility] Respiratory rate 2021-07-31 14:28:00 15 /min [facility] [place] [facility] Oxygen saturation in 2021-07-31 14:28:00 98 /min University of Arterial blood by [employer] anahi Pulse oximetry Branch Body height 2021-07-31 13:15:00 170.2 cm [facility] [place] [facility] Body weight 2021-07-31 13:15:00 106.142 kg [facility] [place] [facility] BMI 2021-07-31 13:15:00 36.65 kg/m2 [facility] [place] [facility] Systolic blood 2021-04-11 13:43:00 138 mm[Hg] [facility]iver [facility] [place] [facility] Diastolic blood 2021-04-11 13:43:00 80 mm[Hg] [facility] rs[facility] [place] [facility] Heart rate 2021-04-11 13:43:00 78 /min [facility] [place] [facility] Body temperature 2021-04-11 13:43:00 37.17 Nelda [facility] [place] [facility] Respiratory rate 2021-04-11 13:43:00 18 /min [facility] [place] [facility] Body height 2021-04-11 13:43:00 170.2 cm [facility] [place] [facility] Body weight 2021-04-11 13:43:00 104.327 kg [facility] [place] [facility] BMI 2021-04-11 13:43:00 36.02 kg/m2 [facility] [place] [facility] Oxygen saturation in 2021-04-11 13:43:00 99 /min University of Arterial blood by [place] [employer] anahi Pulse oximetry Branch BP Systolic 2022-04-16 11:35:00 162 mm[Hg] BP Diastolic 2022-04-16 11:35:00 91 mm[Hg] Weight Measured 2022-04-16 11:35:00 228.20 pounds Height Measured 2022-04-16 11:35:00 67.00 inches Body Temperature 2022-04-16 11:35:00 98.40 degrees Heart Rate 2022-04-16 11:35:00 92.00 /min Respiratory Rate 2022-04-16 11:35:00 BP Systolic 2022-03-10 10:48:00 160 mm[Hg] BP Diastolic 2022-03-10 10:48:00 93 mm[Hg] Weight Measured 2022-03-10 10:48:00 230.40 pounds Height Measured 2022-03-10 10:48:00 67.00 inches Body Temperature 2022-03-10 10:48:00 98.50 degrees Heart Rate 2022-03-10 10:48:00 92.00 /min Respiratory Rate 2022-03-10 10:48:00 BP Systolic 2022-01-31 15:19:00 121 mm[Hg] BP Diastolic 2022-01-31 15:19:00 77 mm[Hg] Weight Measured 2022-01-31 15:19:00 230.20 pounds Height Measured 2022-01-31 15:19:00 67.00 inches Body Temperature 2022-01-31 15:19:00 98.40 degrees Heart Rate 2022-01-31 15:19:00 81.00 /min Respiratory Rate 2022-01-31 15:19:00 BP Systolic 2021-09-25 11:06:00 132 mm[Hg] BP Diastolic 2021-09-25 11:06:00 84 mm[Hg] Weight Measured 2021-09-25 11:06:00 230.00 pounds Height Measured 2021-09-25 11:06:00 67.00 inches Body Temperature 2021-09-25 11:06:00 98.60 degrees Heart Rate 2021-09-25 11:06:00 76.00 /min Respiratory Rate 2021-09-25 11:06:00 BP Systolic 2021-06-12 08:09:00 140 mm[Hg] BP Diastolic 2021-06-12 08:09:00 88 mm[Hg] Weight Measured 2021-06-12 08:09:00 233.60 pounds Height Measured 2021-06-12 08:09:00 67.00 inches Body Temperature 2021-06-12 08:09:00 97.40 degrees Heart Rate 2021-06-12 08:09:00 75.00 /min Respiratory Rate 2021-06-12 08:09:00 BP Systolic 2021-04-08 09:08:00 140 mm[Hg] BP Diastolic 2021-04-08 09:08:00 91 mm[Hg] Weight Measured 2021-04-08 09:08:00 230.60 pounds Height Measured 2021-04-08 09:08:00 69.20 inches Body Temperature 2021-04-08 09:08:00 98.00 degrees Heart Rate 2021-04-08 09:08:00 87.00 /min Respiratory Rate 2021-04-08 09:08:00 BP Systolic 2020-10-08 08:10:00 134 mm[Hg] BP Diastolic 2020-10-08 08:10:00 86 mm[Hg] Weight Measured 2020-10-08 08:10:00 229.80 pounds Height Measured 2020-10-08 08:10:00 69.20 inches Body Temperature 2020-10-08 08:10:00 98.40 degrees Heart Rate 2020-10-08 08:10:00 85.00 /min Respiratory Rate 2020-10-08 08:10:00 BP Systolic 2020-04-16 09:47:00 142 mm[Hg] BP Diastolic 2020-04-16 09:47:00 83 mm[Hg] Weight Measured 2020-04-16 09:47:00 225.40 pounds Height Measured 2020-04-16 09:47:00 67.00 inches Body Temperature 2020-04-16 09:47:00 98.50 degrees Heart Rate 2020-04-16 09:47:00 76.00 /min Respiratory Rate 2020-04-16 09:47:00 BP Systolic 2019-11-01 14:56:00 143 mm[Hg] BP Diastolic 2019-11-01 14:56:00 86 mm[Hg] Weight Measured 2019-11-01 14:56:00 229.00 pounds Height Measured 2019-11-01 14:56:00 67.00 inches Body Temperature 2019-11-01 14:56:00 98.90 degrees Heart Rate 2019-11-01 14:56:00 75.00 /min Respiratory Rate 2019-11-01 14:56:00 BP Systolic 2019-10-10 15:02:00 129 mm[Hg] BP Diastolic 2019-10-10 15:02:00 77 mm[Hg] Weight Measured 2019-10-10 15:02:00 234.00 pounds Height Measured 2019-10-10 15:02:00 67.00 inches Body Temperature 2019-10-10 15:02:00 98.70 degrees Heart Rate 2019-10-10 15:02:00 77.00 /min Respiratory Rate 2019-10-10 15:02:00 Procedures Procedure Date / Time Performing Clinician Source Performed SARS-COV-2 COVID-19 2022-02-21 16:34:02 [facility] Name [facility] Branch BIVALENT 0.5ML, IM (MODERNA BOOSTER) REFERRAL- 2022-02-18 05:01:00 Doctor Unassigned, No [facility] REQUEST/RESPONSE Name Medical Branch XR SPINE THORACIC 3 2022-01-31 21:48:00 Requisition, Paper [facility] [place] [facility] [place] XR CERVICAL SPINE 3 2022-01-31 21:46:00 [facility] [place] [facility]IGN[facility] OF BENEFITS 2022-01-31 21:20:31 Doctor Unassigned, No [facility] Name Medical Branch COVID-19 (ID NOW RAPID 2021-12-16 03:46:00 Kayode [facility] TESTING) Medical Branch NOTICE OF PRIVACY 2021-12-16 03:28:47 Doctor Unassigned, No [facility] PRACTICES Name Medical Branch CONSENT/REFUSAL FOR 2021-12-16 03:28:15 [facility] Name Medical Branch COLONOSCOPY (ENDO) 2021-07-31 16:12:18 Contreras [facility] Medical Branch COLONOSCOPY (ENDO) 2021-07-31 16:12:18 Contreras [facility] Medical Branch COLONOSCOPY 2021-07-31 16:06:00 Moi Cast [facility] Medical Branch COVID-19 (ID NOW RAPID 2021-07-31 13:23:00 Moi Cast [facility] TESTING) Medical Branch COVID-19 (ID NOW RAPID 2021-07-31 13:23:00 Moi Cast [facility] TESTING) Medical Branch LAB ONLY COVID 2021-07-31 13:23:00 Moi Cast [facility] INTERPRETATION Medical Branch PATIENT QUESTIONNAIRE 2021-07-31 06:01:00 Doctor Unassigned, No [facility] Name Medical Branch DAY SURGERY - ADC 2021-07-31 06:01:00 Doctor Unassigned, No [facility] [place] Name Medical Branch EXTERNAL PROVIDER 2021-07-26 06:01:00 Doctor Unassigned, No [facility] [place] RECORDS Name Medical Branch EXTERNAL PROVIDER 2021-07-26 06:01:00 Doctor Unassigned, No [facility] [place] RECORDS Name Medical Branch SARS-COV-2 COVID-19 2021-04-12 16:22:08 Doctor Unassigned, No [facility] [place] VACCINE,0.5ML,IM Name Medical Branch (MODERNA) NOTICE OF PRIVACY 2021-04-11 13:38:53 Doctor Unassigned, No [facility] [place] PRACTICES Name Medical Branch Plan of Care Planned Activity Planned Date Details Comments Source Goal Plan of Care Note [code = 29836-5] Goal Plan of Care Note [code = 75445-6] Goal Plan of Care Note [code = 25812-7] Goal Plan of Care Note [code = 87611-9] Goal Plan of Care Note [code = 45996-0] Goal Plan of Care Note [code = 47403-8] Goal Plan of Care Note [code = 87085-9] Goal Plan of Care Note [code = 17402-4] Goal Plan of Care Note [code = 02640-7] Goal Plan of Care Note [code = 08100-8] Goal Plan of Care Note [code = 64249-1] Goal Plan of Care Note [code = 97778-3] Goal Plan of Care Note [code = 45254-8] Goal Plan of Care Note [code = 09534-8] Goal Plan of Care Note [code = 10456-9] Goal Plan of Care Note [code = 32661-9] Goal Plan of Care Note [code = 41096-7] Goal Plan of Care Note [code = 15259-1] Goal Plan of Care Note [code = 81919-8] Goal Plan of Care Note [code = 01920-8] Goal Plan of Care Note [code = 27448-9] Goal Plan of Care Note [code = 23738-0] Goal Plan of Care Note [code = 12058-8] Goal Plan of Care Note [code = 89844-8] Goal Plan of Care Note [code = 89026-4] Goal Plan of Care Note [code = 18855-6] Goal Plan of Care Note [code = 21138-1] Goal Plan of Care Note [code = 31931-9] Goal Plan of Care Note [code = 99453-9] Goal Plan of Care Note [code = 25534-8] Goal Plan of Care Note [code = 23969-2] Goal Plan of Care Note [code = 99844-1] Goal Plan of Care Note [code = 05169-1] Goal Plan of Care Note [code = 50148-8] Goal Plan of Care Note [code = 58573-6] Goal Plan of Care Note [code = 77423-6] Goal Plan of Care Note [code = 96175-0] Goal Plan of Care Note [code = 80396-9] Goal Plan of Care Note [code = 97337-4] Goal Plan of Care Note [code = 22203-2] Goal Plan of Care Note [code = 19582-7] Goal Plan of Care Note [code = 41962-0] Goal Plan of Care Note [code = 79587-0] Goal Plan of Care Note [code = 64853-3] Goal Plan of Care Note [code = 21480-5] Goal Plan of Care Note [code = 59570-9] Goal Plan of Care Note [code = 83832-4] Goal Plan of Care Note [code = 37975-1] Goal Plan of Care Note [code = 58375-6] Goal Plan of Care Note [code = 99262-1] Goal Plan of Care Note [code = 88538-0] Goal Plan of Care Note [code = 42602-2] Goal Plan of Care Note [code = 57888-2] Goal Plan of Care Note [code = 46044-6] Goal Plan of Care Note [code = 72012-8] Goal Plan of Care Note [code = 97564-7] Goal Plan of Care Note [code = 98599-6] Goal Plan of Care Note [code = 87457-8] Goal Plan of Care Note [code = 62046-9] Goal Plan of Care Note [code = 41863-2] Goal Plan of Care Note [code = 24168-2] Goal Plan of Care Note [code = 88271-1] Goal Plan of Care Note [code = 06181-0] Goal Plan of Care Note [code = 97878-3] Goal Plan of Care Note [code = 67094-8] Goal Plan of Care Note [code = 81377-5] Goal Plan of Care Note [code = 97835-0] Goal Plan of Care Note [code = 45256-8] Goal Plan of Care Note [code = 52429-7] Goal Plan of Care Note [code = 26008-3] Goal Plan of Care Note [code = 28796-4] Goal Plan of Care Note [code = 26311-4] Goal Plan of Care Note [code = 93351-3] Goal Plan of Care Note [code = 35803-0] Goal Plan of Care Note [code = 09216-4] Goal Plan of Care Note [code = 07761-6] Goal Plan of Care Note [code = 14542-1] Goal Plan of Care Note [code = 82737-2] Goal Plan of Care Note [code = 22019-2] Goal Plan of Care Note [code = 67973-7] Goal Plan of Care Note [code = 05655-8] Encounters Start End Encounter Admission Attending Care Care Encounter Source Date/Time Date/Time Type Type Clinicians Facility Department ID 2022-04-17 2022-04-17 Outpatient KELLI PEREIRA [id number] Cristóbal 08:21:49 08:21:49 1117 [place] 2022-04-16 2022-04-16 Outpatient KELLI PEREIRA [id number] Cristóbal 11:31:41 11:31:41 1116 M[place] 2022-04-16 2022-04-16 Outpatient [id number] 00:00:00 00:00:00 Visit 2vr3-054q eb8-436d-8 -4fq5-10p [id number] [id number] [id number] 2022-03-28 2022-03-28 Ancillary Jenniffer Russell [facility] 1.2.84 0.114 [id number] Univers 08:45:00 09:30:00 Visit Leana Obregon 350.1.13.10 it[place] [id number] Me dical NAL 179 [facility] 2022-03-28 2022-03-28 Outpatient R SABAS [facility] [id number] Univers 08:45:00 08:45:00 LEANA ity of [facility] 2022-03-25 2022-03-25 Ancillary Chrystal Archer [facility] 1.2.840 .114 [id number] Univers 08:45:00 09:30:00 Visit Leana Obregon 350.1.13.10 ity of [place] [id number] Nv dical NAL 179 [facility] 2022-03-20 2022-03-20 Ancillary Jenniffer Russell [facility] 1.2.84 0.114 [id number] Univers 08:00:00 08:39:57 Visit Leana Obregon 350.1.13.10 ity [place] [id number] Nv dical NAL 179 Branch [facility] 2022-03-14 2022-03-14 Ancillary Jenniffer Russell [facility] 1.2[id number] [facility] 08:45:00 11:27:25 Visit Leana Obregon 350.1.13.10 it[place] [id number] Nv dical NAL 179 Branch [facility] 2022-03-11 2022-03-11 Ancillary Elo Lopez [facility] 1.2. 840.114 [id number] Univers 08:45:00 09:30:00 Visit Leana Obregon 350.1.13.10 ity of [facility] [place] [id number] Me dical NAL 179 [facility] 2022-03-10 2022-03-10 Outpatient [facility] [id number] 022 Cristóbal 10:40:37 10:40:37 1010 F Mulugeta 2022-03-10 2022-03-10 Outpatient [id number]- [id number] 00:00:00 00:00:00 Visit 04k7-9f08 6q0-7g62-w -y5lz-9v7 [id number] [id number] 2022-03-03 2022-03-03 Ancillary Jenniffer Russell [facility] 1.2[id number] [facility] 08:45:00 10:51:54 Visit Leana Obregon 350.1.13.10 ity of [facility] [place] [id number] Nv dical NAL 179 [facility] 2022-02-21 2022-02-21 Outpatient Corry BHAGAT [facility] [id number] Univers 11:00:00 11:28:56 HANS itnishant of [facility] 2022-02-21 2022-02-21 Imm/Inj Vaccine, Adc Family Medicine [facility] 1.2.840.114 [id number] Univers 11:00:00 11:28:56 Visit Hans Bhagat 350.1.13 .10 [place] [id number] Nv dical NAL 044 [facility] 2022-02-18 2022-02-18 Orders Doctor JUAN 1.2.840.114 [id number] Univers 00:00:00 00:00:00 Only Unassigned, DANA 350.1.13.10 ity of [facility] 4.2.7.2.686 Jace as [id number] [address] 2022-01-31 2022-01-31 Hospital Radiology [facility] 1.2.840.114 [id number] Univers 16:23:44 23:59:00 Encounter [place] 350.1.13.10 ity of [place] 4.2.7.2.686 [facility] [id number] [facility] 807 Branch 2022-01-31 2022-01-31 Outpatient R RADIOLOGY [facility] [id number] Univers 16:23:14 16:22:00 ity of [facility] 2022-01-31 2022-01-31 Hospital Radiology [facility] 1.2.840.114 [id number] Univers 16:15:00 16:22:00 Encounter [place] 350.1.13.10 ity [facility] 4.2.7.2.686 [facility] [id number] [place] 717267 [place] 2022-01-31 2022-01-31 Orders Doctor JUAN 1.2.840.114 [id number] Univers 00:00:00 00:00:00 Only Unassigned, DANA 350.1.13.10 ity of [place] [facility] 4.2.7.2.686 Jace [id number] [facility] 009 Branch 2022-01-31 2022-01-31 Outpatient [id number]- [id number] 00:00:00 00:00:00 Visit [id number]-4419 63f-4419-b -bfe6-802 fe6-8020b6 [id number] 5l681z 2021-12-23 2021-12-23 Outpatient [id number]- [id number] m9zodk-9 00:00:00 00:00:00 Visit 75eb-4ba0 5eb-4ba0-b -k346-942 [id number] 7i9g88m5y d46e5b 2021-12-15 2021-12-16 Emergency X SINGER [facility] ERT [id number] Univers 22:41:00 00:20:00 KAYODE rutledge [facility] 2021-12-15 2021-12-16 Emergency Singer [facility] 1.2.935.886 [id number] Univers 22:41:00 00:20:00 Kayode CASSIDY 350.1.13.10 i [place] [id number] [facility] 084 Branch 2021-12-15 2021-12-15 Orders Doctor JUAN 1.2.840.114 [id number] Univers 00:00:00 00:00:00 Only Unassigned, DANA 350.1.13.10 ity of [place] [facility] 4.2.7.2.686 Jace as [id number] [facility] 009 Branch 2021-07-31 2021-07-31 Outpatient R [facility] [id number] Univers 07:19:00 11:12:00 MOI Jurado o f [facility] 2021-07-31 2021-07-31 [facility] 1.2.840.114 [id number] Univers 07:19:00 11:12:00 Encounter Moi jurado 350.1.13.10 [place] of [place] [id number] [facility] 071 Branch 2021-07-31 2021-07-31 Surgery [facility] 1.2.840.114 [id number] Univers 10:04:00 10:44:00 Moi jurado 350.1.13.10 it[place] of [place] [id number] [facility] 020 Branch 2021-04-12 2021-04-12 Outpatient R OLAYINKA [facility] [id number] Univers 10:30:00 10:11:34 HANS rutledge [facility] 2021-04-12 2021-04-12 Imm/Inj Nurse, Adc Pob Immunization [facility] 1.2.840.114 [id number] Univers 10:11:27 10:11:34 Visit Hans Bhagat 350.1.13 .10 ity of [facility] [place] [id number] Nv dical NAL 421 Branch [facility] 2021-04-11 2021-04-11 Emergency X SINGER [facility] ERT [id number] Univers 07:44:00 08:46:00 KAYODE rutledge of [facility] 2021-04-11 2021-04-11 Emergency [facility] 1.2.544.[id number] [facility] 07:44:00 08:46:00 Kayode [place] 350.1.13.10 [facility] 4.2.7.2.686 [facility] [id number] [place] [address] Branch Results Test Description Test Time Test Comments Results Result Comments Source CBC W/AUTO DIFF 2021-04-09 00:00:00 Test Item Value Reference Range Interpretation Comme nts WBC (test code = 1001) 8.2 K/UL RBC (test code = 1002) 4.67 M/UL HEMOGLOBIN (test code = 1003) 12.3 G/DL HEMATOCRIT (test code = 1004) 37.0 % MCV (test code = 1005) 79.2 fL MCH (test code = 1006) 26.3 PG MCHC (test code = 1007) 33.2 G/DL RDW (test code = 1038) 12.5 % NEUTROPHILS (test code = 1008) 67.2 % LYMPHOCYTES (test code = 1010) 22.8 % MONOCYTES (test code = 1011) 7.4 % EOSINOPHILS (test code = 1012) 2.0 % BASOPHILS (test code = 1013) 0.4 % IMMATURE GRANULOCYTES (test code = 1036) 0.2 % NUCLEATED RBCS (test code = 1065) 0.0 /100WBC'S PLATELET COUNT (test code = 1015) 239 K/UL ABSOLUTE NEUTROPHILS (test code = 1066) 5.48 K/UL ABSOLUTE LYMPHOCYTES (test code = 1067) 1.86 K/UL ABSOLUTE MONOCYTES (test code = 1068) 0.60 K/UL ABSOLUTE EOSINOPHILS (test code = 1040) 0.16 K/UL ABSOLUTE BASOPHILS (test code = 1069) 0.03 K/UL ABS IMMATURE GRANULOCYTES (test code = 1020) 0.02 K/UL ABS NUCLEATED RBCS (test code = 56068) 0.00 K/UL LIPID [id number] 00:00:00 Test Item Value Reference Range Interpretation Comments CHOLESTEROL (test code = 2210) 168 MG/DL TRIGLYCERIDES (test code = 2232) 38 MG/DL HDL CHOLESTEROL (test code = 2220) 65 MG/DL CALC LDL CHOL (test code = 2237) 92 MG/DL RISK RATIO LDL/HDL (test code = 1.42 RATIO 2238) LIPID [id number] 00:00:00 Test Item Value Reference Range Interpretation Comments CHOLESTEROL (test code = 2210) 168 MG/DL TRIGLYCERIDES (test code = 2232) 38 MG/DL HDL CHOLESTEROL (test code = 2220) 65 MG/DL CALC LDL CHOL (test code = 2237) 92 MG/DL RISK RATIO LDL/HDL (test code = 1.42 RATIO 2238) COMPREHENSIVE METABOLIC [id number] 00:00:00 Test Item Value Reference Range Interpretation Comments GLUCOSE (test code = 2217) 99 MG/DL BUN (test code = 2208) 7 MG/DL CREATININE (test code = 2214) 0.92 MG/DL eGFR AMER. (test code 100 ML/MIN/1.73 = 67695) eGFR NON- AMER. (test 86 ML/MIN/1.73 code = 01797) CALC BUN/CREAT (test code = 8 RATIO 2235) SODIUM (test code = 2231) 133 MEQ/L POTASSIUM (test code = 2228) 4.8 MEQ/L CHLORIDE (test code = 2215) 93 MEQ/L CARBON DIOXIDE (test code = 24 MEQ/L 2205) CALCIUM (test code = 2209) 9.7 MG/DL PROTEIN, TOTAL (test code = 8.0 G/DL 2228) ALBUMIN (test code = 2201) 5.0 G/DL CALC GLOBULIN (test code = 3.0 G/DL 2240) CALC A/G RATIO (test code = 1.7 RATIO 2234) BILIRUBIN, TOTAL (test code = 0.5 MG/DL 2206) ALKALINE PHOSPHATASE (test 67 U/L code = 2204) AST (test code = 2218) 25 U/L ALT (test code = 2219) 26 U/L COMPREHENSIVE METABOLIC [id number] 00:00:00 Test Item Value Reference Range Interpretation Comments GLUCOSE (test code = 2217) 99 MG/DL BUN (test code = 2208) 7 MG/DL CREATININE (test code = 2214) 0.92 MG/DL eGFR AMER. (test code 100 ML/MIN/1.73 = 44224) eGFR NON- AMER. (test 86 ML/MIN/1.73 code = 77476) CALC BUN/CREAT (test code = 8 RATIO 2235) SODIUM (test code = 2231) 133 MEQ/L POTASSIUM (test code = 2228) 4.8 MEQ/L CHLORIDE (test code = 2215) 93 MEQ/L CARBON DIOXIDE (test code = 24 MEQ/L 2205) CALCIUM (test code = 2209) 9.7 MG/DL PROTEIN, TOTAL (test code = 8.0 G/DL 2228) ALBUMIN (test code = 2201) 5.0 G/DL CALC GLOBULIN (test code = 3.0 G/DL 2239) CALC A/G RATIO (test code = 1.7 RATIO 2233) BILIRUBIN, TOTAL (test code = 0.5 MG/DL 2206) ALKALINE PHOSPHATASE (test 67 U/L code = 220) AST (test code = 2218) 25 U/L ALT (test code = 2219) 26 U/L CBC W/AUTO [id number] 00:00:00 Test Item Value Reference Range Interpretation Comments WBC (test code = 1001) 8.2 K/UL RBC (test code = 1002) 4.67 M/UL HEMOGLOBIN (test code = 1003) 12.3 G/DL HEMATOCRIT (test code = 1004) 37.0 % MCV (test code = 1005) 79.2 fL MCH (test code = 1006) 26.3 PG MCHC (test code = 1007) 33.2 G/DL RDW (test code = 1038) 12.5 % NEUTROPHILS (test code = 1008) 67.2 % LYMPHOCYTES (test code = 1010) 22.8 % MONOCYTES (test code = 1011) 7.4 % EOSINOPHILS (test code = 1012) 2.0 % BASOPHILS (test code = 1013) 0.4 % IMMATURE GRANULOCYTES (test 0.2 % code = 1036) NUCLEATED RBCS (test code = 0.0 /100WBC'S 1065) PLATELET COUNT (test code = 239 K/UL 1015) ABSOLUTE NEUTROPHILS (test code 5.48 K/UL = 1066) ABSOLUTE LYMPHOCYTES (test code 1.86 K/UL = 1067) ABSOLUTE MONOCYTES (test code = 0.60 K/UL 1068) ABSOLUTE EOSINOPHILS (test code 0.16 K/UL = 1040) ABSOLUTE BASOPHILS (test code = 0.03 K/UL 1069) ABS IMMATURE GRANULOCYTES (test 0.02 K/UL code = 1020) ABS NUCLEATED RBCS (test code = 0.00 K/UL 48459) CBC W/AUTO [id number] 00:00:00 Test Item Value Reference Range Interpretation Comments WBC (test code = 1001) 8.2 K/UL RBC (test code = 1002) 4.67 M/UL HEMOGLOBIN (test code = 1003) 12.3 G/DL HEMATOCRIT (test code = 1004) 37.0 % MCV (test code = 1005) 79.2 fL MCH (test code = 1006) 26.3 PG MCHC (test code = 1007) 33.2 G/DL RDW (test code = 1038) 12.5 % NEUTROPHILS (test code = 1008) 67.2 % LYMPHOCYTES (test code = 1010) 22.8 % MONOCYTES (test code = 1011) 7.4 % EOSINOPHILS (test code = 1012) 2.0 % BASOPHILS (test code = 1013) 0.4 % IMMATURE GRANULOCYTES (test 0.2 % code = 1036) NUCLEATED RBCS (test code = 0.0 /100WBC'S 1065) PLATELET COUNT (test code = 239 K/UL 1015) ABSOLUTE NEUTROPHILS (test code 5.48 K/UL = 1066) ABSOLUTE LYMPHOCYTES (test code 1.86 K/UL = 1067) ABSOLUTE MONOCYTES (test code = 0.60 K/UL 1068) ABSOLUTE EOSINOPHILS (test code 0.16 K/UL = 1040) ABSOLUTE BASOPHILS (test code = 0.03 K/UL 1069) ABS IMMATURE GRANULOCYTES (test 0.02 K/UL code = 1020) ABS NUCLEATED RBCS (test code = 0.00 K/UL 67175) CBC W/AUTO [id number] 00:00:00 Test Item Value Reference Range Interpretation Comments WBC (test code = 1001) 8.2 K/UL RBC (test code = 1002) 4.67 M/UL HEMOGLOBIN (test code = 1003) 12.3 G/DL HEMATOCRIT (test code = 1004) 37.0 % MCV (test code = 1005) 79.2 fL MCH (test code = 1006) 26.3 PG MCHC (test code = 1007) 33.2 G/DL RDW (test code = 1038) 12.5 % NEUTROPHILS (test code = 1008) 67.2 % LYMPHOCYTES (test code = 1010) 22.8 % MONOCYTES (test code = 1011) 7.4 % EOSINOPHILS (test code = 1012) 2.0 % BASOPHILS (test code = 1013) 0.4 % IMMATURE GRANULOCYTES (test 0.2 % code = 1036) NUCLEATED RBCS (test code = 0.0 /100WBC'S 1065) PLATELET COUNT (test code = 239 K/UL 1015) ABSOLUTE NEUTROPHILS (test code 5.48 K/UL = 1066) ABSOLUTE LYMPHOCYTES (test code 1.86 K/UL = 1067) ABSOLUTE MONOCYTES (test code = 0.60 K/UL 1068) ABSOLUTE EOSINOPHILS (test code 0.16 K/UL = 1040) ABSOLUTE BASOPHILS (test code = 0.03 K/UL 1069) ABS IMMATURE GRANULOCYTES (test 0.02 K/UL code = 1020) ABS NUCLEATED RBCS (test code = 0.00 K/UL 93655) LIPID [id number] 00:00:00 Test Item Value Reference Range Interpretation Comments CHOLESTEROL (test code = 2210) 168 MG/DL TRIGLYCERIDES (test code = 2232) 38 MG/DL HDL CHOLESTEROL (test code = 2220) 65 MG/DL CALC LDL CHOL (test code = 2237) 92 MG/DL RISK RATIO LDL/HDL (test code = 1.42 RATIO 2238) LIPID [id number] 00:00:00 Test Item Value Reference Range Interpretation Comments CHOLESTEROL (test code = 2210) 168 MG/DL TRIGLYCERIDES (test code = 2232) 38 MG/DL HDL CHOLESTEROL (test code = 2220) 65 MG/DL CALC LDL CHOL (test code = 2237) 92 MG/DL RISK RATIO LDL/HDL (test code = 1.42 RATIO 2238) COMPREHENSIVE METABOLIC [id number] 00:00:00 Test Item Value Reference Range Interpretation Comments GLUCOSE (test code = 2217) 99 MG/DL BUN (test code = 2208) 7 MG/DL CREATININE (test code = 2214) 0.92 MG/DL eGFR AMER. (test code 100 ML/MIN/1.73 = 06828) eGFR NON- AMER. (test 86 ML/MIN/1.73 code = 15821) CALC BUN/CREAT (test code = 8 RATIO 2235) SODIUM (test code = 2231) 133 MEQ/L POTASSIUM (test code = 2228) 4.8 MEQ/L CHLORIDE (test code = 2215) 93 MEQ/L CARBON DIOXIDE (test code = 24 MEQ/L 2206) CALCIUM (test code = 2209) 9.7 MG/DL PROTEIN, TOTAL (test code = 8.0 G/DL 222) ALBUMIN (test code = 2201) 5.0 G/DL CALC GLOBULIN (test code = 3.0 G/DL 2240) CALC A/G RATIO (test code = 1.7 RATIO 2234) BILIRUBIN, TOTAL (test code = 0.5 MG/DL 2206) ALKALINE PHOSPHATASE (test 67 U/L code = 2204) AST (test code = 2218) 25 U/L ALT (test code = 2219) 26 U/L COMPREHENSIVE METABOLIC [id number] 00:00:00 Test Item Value Reference Range Interpretation Comments GLUCOSE (test code = 2217) 99 MG/DL BUN (test code = 2208) 7 MG/DL CREATININE (test code = 2214) 0.92 MG/DL eGFR AMER. (test code 100 ML/MIN/1.73 = 99555) eGFR NON- AMER. (test 86 ML/MIN/1.73 code = 11767) CALC BUN/CREAT (test code = 8 RATIO 2235) SODIUM (test code = 2231) 133 MEQ/L POTASSIUM (test code = 2228) 4.8 MEQ/L CHLORIDE (test code = 2215) 93 MEQ/L CARBON DIOXIDE (test code = 24 MEQ/L 2205) CALCIUM (test code = 2209) 9.7 MG/DL PROTEIN, TOTAL (test code = 8.0 G/DL 2228) ALBUMIN (test code = 2201) 5.0 G/DL CALC GLOBULIN (test code = 3.0 G/DL 2240) CALC A/G RATIO (test code = 1.7 RATIO 2234) BILIRUBIN, TOTAL (test code = 0.5 MG/DL 2206) ALKALINE PHOSPHATASE (test 67 U/L code = 2204) AST (test code = 2218) 25 U/L ALT (test code = 2219) 26 U/L CBC W/AUTO [id number] 00:00:00 Test Item Value Reference Range Interpretation Comments WBC (test code = 1001) 8.2 K/UL RBC (test code = 1002) 4.67 M/UL HEMOGLOBIN (test code = 1003) 12.3 G/DL HEMATOCRIT (test code = 1004) 37.0 % MCV (test code = 1005) 79.2 fL MCH (test code = 1006) 26.3 PG MCHC (test code = 1007) 33.2 G/DL RDW (test code = 1038) 12.5 % NEUTROPHILS (test code = 1008) 67.2 % LYMPHOCYTES (test code = 1010) 22.8 % MONOCYTES (test code = 1011) 7.4 % EOSINOPHILS (test code = 1012) 2.0 % BASOPHILS (test code = 1013) 0.4 % IMMATURE GRANULOCYTES (test 0.2 % code = 1036) NUCLEATED RBCS (test code = 0.0 /100WBC'S 1065) PLATELET COUNT (test code = 239 K/UL 1015) ABSOLUTE NEUTROPHILS (test code 5.48 K/UL = 1066) ABSOLUTE LYMPHOCYTES (test code 1.86 K/UL = 1067) ABSOLUTE MONOCYTES (test code = 0.60 K/UL 1068) ABSOLUTE EOSINOPHILS (test code 0.16 K/UL = 1040) ABSOLUTE BASOPHILS (test code = 0.03 K/UL 1069) ABS IMMATURE GRANULOCYTES (test 0.02 K/UL code = 1020) ABS NUCLEATED RBCS (test code = 0.00 K/UL 12428) CBC W/AUTO [id number] 00:00:00 Test Item Value Reference Range Interpretation Comments WBC (test code = 1001) 8.2 K/UL RBC (test code = 1002) 4.67 M/UL HEMOGLOBIN (test code = 1003) 12.3 G/DL HEMATOCRIT (test code = 1004) 37.0 % MCV (test code = 1005) 79.2 fL MCH (test code = 1006) 26.3 PG MCHC (test code = 1007) 33.2 G/DL RDW (test code = 1038) 12.5 % NEUTROPHILS (test code = 1008) 67.2 % LYMPHOCYTES (test code = 1010) 22.8 % MONOCYTES (test code = 1011) 7.4 % EOSINOPHILS (test code = 1012) 2.0 % BASOPHILS (test code = 1013) 0.4 % IMMATURE GRANULOCYTES (test 0.2 % code = 1036) NUCLEATED RBCS (test code = 0.0 /100WBC'S 1065) PLATELET COUNT (test code = 239 K/UL 1015) ABSOLUTE NEUTROPHILS (test code 5.48 K/UL = 1066) ABSOLUTE LYMPHOCYTES (test code 1.86 K/UL = 1067) ABSOLUTE MONOCYTES (test code = 0.60 K/UL 1068) ABSOLUTE EOSINOPHILS (test code 0.16 K/UL = 1040) ABSOLUTE BASOPHILS (test code = 0.03 K/UL 1069) ABS IMMATURE GRANULOCYTES (test 0.02 K/UL code = 1020) ABS NUCLEATED RBCS (test code = 0.00 K/UL 94135) CBC W/AUTO [id number] 00:00:00 Test Item Value Reference Range Interpretation Comments WBC (test code = 1001) 8.2 K/UL RBC (test code = 1002) 4.67 M/UL HEMOGLOBIN (test code = 1003) 12.3 G/DL HEMATOCRIT (test code = 1004) 37.0 % MCV (test code = 1005) 79.2 fL MCH (test code = 1006) 26.3 PG MCHC (test code = 1007) 33.2 G/DL RDW (test code = 1038) 12.5 % NEUTROPHILS (test code = 1008) 67.2 % LYMPHOCYTES (test code = 1010) 22.8 % MONOCYTES (test code = 1011) 7.4 % EOSINOPHILS (test code = 1012) 2.0 % BASOPHILS (test code = 1013) 0.4 % IMMATURE GRANULOCYTES (test 0.2 % code = 1036) NUCLEATED RBCS (test code = 0.0 /100WBC'S 1065) PLATELET COUNT (test code = 239 K/UL 1015) ABSOLUTE NEUTROPHILS (test code 5.48 K/UL = 1066) ABSOLUTE LYMPHOCYTES (test code 1.86 K/UL = 1067) ABSOLUTE MONOCYTES (test code = 0.60 K/UL 1068) ABSOLUTE EOSINOPHILS (test code 0.16 K/UL = 1040) ABSOLUTE BASOPHILS (test code = 0.03 K/UL 1069) ABS IMMATURE GRANULOCYTES (test 0.02 K/UL code = 1020) ABS NUCLEATED RBCS (test code = 0.00 K/UL 30683) CBC W/AUTO [id number] 00:00:00 Test Item Value Reference Range Interpretation Comments WBC (test code = 1001) 8.2 K/UL RBC (test code = 1002) 4.67 M/UL HEMOGLOBIN (test code = 1003) 12.3 G/DL HEMATOCRIT (test code = 1004) 37.0 % MCV (test code = 1005) 79.2 fL MCH (test code = 1006) 26.3 PG MCHC (test code = 1007) 33.2 G/DL RDW (test code = 1038) 12.5 % NEUTROPHILS (test code = 1008) 67.2 % LYMPHOCYTES (test code = 1010) 22.8 % MONOCYTES (test code = 1011) 7.4 % EOSINOPHILS (test code = 1012) 2.0 % BASOPHILS (test code = 1013) 0.4 % IMMATURE GRANULOCYTES (test 0.2 % code = 1036) NUCLEATED RBCS (test code = 0.0 /100WBC'S 1065) PLATELET COUNT (test code = 239 K/UL 1015) ABSOLUTE NEUTROPHILS (test code 5.48 K/UL = 1066) ABSOLUTE LYMPHOCYTES (test code 1.86 K/UL = 1067) ABSOLUTE MONOCYTES (test code = 0.60 K/UL 1068) ABSOLUTE EOSINOPHILS (test code 0.16 K/UL = 1040) ABSOLUTE BASOPHILS (test code = 0.03 K/UL 1069) ABS IMMATURE GRANULOCYTES (test 0.02 K/UL code = 1020) ABS NUCLEATED RBCS (test code = 0.00 K/UL 24584) CBC W/AUTO [id number] 00:00:00 Test Item Value Reference Range Interpretation Comments WBC (test code = 1001) 8.2 K/UL RBC (test code = 1002) 4.67 M/UL HEMOGLOBIN (test code = 1003) 12.3 G/DL HEMATOCRIT (test code = 1004) 37.0 % MCV (test code = 1005) 79.2 fL MCH (test code = 1006) 26.3 PG MCHC (test code = 1007) 33.2 G/DL RDW (test code = 1038) 12.5 % NEUTROPHILS (test code = 1008) 67.2 % LYMPHOCYTES (test code = 1010) 22.8 % MONOCYTES (test code = 1011) 7.4 % EOSINOPHILS (test code = 1012) 2.0 % BASOPHILS (test code = 1013) 0.4 % IMMATURE GRANULOCYTES (test 0.2 % code = 1036) NUCLEATED RBCS (test code = 0.0 /100WBC'S 1065) PLATELET COUNT (test code = 239 K/UL 1015) ABSOLUTE NEUTROPHILS (test code 5.48 K/UL = 1066) ABSOLUTE LYMPHOCYTES (test code 1.86 K/UL = 1067) ABSOLUTE MONOCYTES (test code = 0.60 K/UL 1068) ABSOLUTE EOSINOPHILS (test code 0.16 K/UL = 1040) ABSOLUTE BASOPHILS (test code = 0.03 K/UL 1069) ABS IMMATURE GRANULOCYTES (test 0.02 K/UL code = 1020) ABS NUCLEATED RBCS (test code = 0.00 K/UL 46968) LIPID [id number] 00:00:00 Test Item Value Reference Range Interpretation Comments CHOLESTEROL (test code = 2210) 168 MG/DL TRIGLYCERIDES (test code = 2232) 38 MG/DL HDL CHOLESTEROL (test code = 2220) 65 MG/DL CALC LDL CHOL (test code = 2237) 92 MG/DL RISK RATIO LDL/HDL (test code = 1.42 RATIO 2238) LIPID [id number] 00:00:00 Test Item Value Reference Range Interpretation Comments CHOLESTEROL (test code = 2210) 168 MG/DL TRIGLYCERIDES (test code = 2232) 38 MG/DL HDL CHOLESTEROL (test code = 2220) 65 MG/DL CALC LDL CHOL (test code = 2237) 92 MG/DL RISK RATIO LDL/HDL (test code = 1.42 RATIO 2238) COMPREHENSIVE METABOLIC [id number] 00:00:00 Test Item Value Reference Range Interpretation Comments GLUCOSE (test code = 2217) 99 MG/DL BUN (test code = 2208) 7 MG/DL CREATININE (test code = 2214) 0.92 MG/DL eGFR AMER. (test code 100 ML/MIN/1.73 = 81313) eGFR NON- AMER. (test 86 ML/MIN/1.73 code = 34011) CALC BUN/CREAT (test code = 8 RATIO 2235) SODIUM (test code = 2231) 133 MEQ/L POTASSIUM (test code = 2228) 4.8 MEQ/L CHLORIDE (test code = 2215) 93 MEQ/L CARBON DIOXIDE (test code = 24 MEQ/L 6) CALCIUM (test code = 2209) 9.7 MG/DL PROTEIN, TOTAL (test code = 8.0 G/DL 2228) ALBUMIN (test code = 2201) 5.0 G/DL CALC GLOBULIN (test code = 3.0 G/DL 2240) CALC A/G RATIO (test code = 1.7 RATIO 2234) BILIRUBIN, TOTAL (test code = 0.5 MG/DL 2206) ALKALINE PHOSPHATASE (test 67 U/L code = 2204) AST (test code = 2218) 25 U/L ALT (test code = 2219) 26 U/L COMPREHENSIVE METABOLIC [id number] 00:00:00 Test Item Value Reference Range Interpretation Comments GLUCOSE (test code = 2217) 99 MG/DL BUN (test code = 2208) 7 MG/DL CREATININE (test code = 2214) 0.92 MG/DL eGFR AMER. (test code 100 ML/MIN/1.73 = 23066) eGFR NON- AMER. (test 86 ML/MIN/1.73 code = 25780) CALC BUN/CREAT (test code = 8 RATIO 2235) SODIUM (test code = 2231) 133 MEQ/L POTASSIUM (test code = 2228) 4.8 MEQ/L CHLORIDE (test code = 2215) 93 MEQ/L CARBON DIOXIDE (test code = 24 MEQ/L 2205) CALCIUM (test code = 2209) 9.7 MG/DL PROTEIN, TOTAL (test code = 8.0 G/DL 2228) ALBUMIN (test code = 2201) 5.0 G/DL CALC GLOBULIN (test code = 3.0 G/DL 2240) CALC A/G RATIO (test code = 1.7 RATIO 2234) BILIRUBIN, TOTAL (test code = 0.5 MG/DL 2206) ALKALINE PHOSPHATASE (test 67 U/L code = 2204) AST (test code = 2218) 25 U/L ALT (test code = 2219) 26 U/L LIPID [id number] 00:00:00 Test Item Value Reference Range Interpretation Comments CHOLESTEROL (test code = 2210) 168 MG/DL TRIGLYCERIDES (test code = 2232) 38 MG/DL HDL CHOLESTEROL (test code = 2220) 65 MG/DL CALC LDL CHOL (test code = 2237) 92 MG/DL RISK RATIO LDL/HDL (test code = 1.42 RATIO 2238) COMPREHENSIVE METABOLIC [id number] 00:00:00 Test Item Value Reference Range Interpretation Comments GLUCOSE (test code = 2217) 99 MG/DL BUN (test code = 2208) 7 MG/DL CREATININE (test code = 2214) 0.92 MG/DL eGFR AMER. (test code 100 ML/MIN/1.73 = 67119) eGFR NON- AMER. (test 86 ML/MIN/1.73 code = 37797) CALC BUN/CREAT (test code = 8 RATIO 2235) SODIUM (test code = 2231) 133 MEQ/L POTASSIUM (test code = 2228) 4.8 MEQ/L CHLORIDE (test code = 2215) 93 MEQ/L CARBON DIOXIDE (test code = 24 MEQ/L 2205) CALCIUM (test code = 2209) 9.7 MG/DL PROTEIN, TOTAL (test code = 8.0 G/DL 2228) ALBUMIN (test code = 2201) 5.0 G/DL CALC GLOBULIN (test code = 3.0 G/DL 2240) CALC A/G RATIO (test code = 1.7 RATIO 2234) BILIRUBIN, TOTAL (test code = 0.5 MG/DL 2206) ALKALINE PHOSPHATASE (test 67 U/L code = 2204) AST (test code = 2218) 25 U/L ALT (test code = 2219) 26 U/L CBC W/AUTO [id number] 00:00:00 Test Item Value Reference Range Interpretation Comments WBC (test code = 1001) 8.2 K/UL RBC (test code = 1002) 4.67 M/UL HEMOGLOBIN (test code = 1003) 12.3 G/DL HEMATOCRIT (test code = 1004) 37.0 % MCV (test code = 1005) 79.2 fL MCH (test code = 1006) 26.3 PG MCHC (test code = 1007) 33.2 G/DL RDW (test code = 1038) 12.5 % NEUTROPHILS (test code = 1008) 67.2 % LYMPHOCYTES (test code = 1010) 22.8 % MONOCYTES (test code = 1011) 7.4 % EOSINOPHILS (test code = 1012) 2.0 % BASOPHILS (test code = 1013) 0.4 % IMMATURE GRANULOCYTES (test 0.2 % code = 1036) NUCLEATED RBCS (test code = 0.0 /100WBC'S 1065) PLATELET COUNT (test code = 239 K/UL 1015) ABSOLUTE NEUTROPHILS (test code 5.48 K/UL = 1066) ABSOLUTE LYMPHOCYTES (test code 1.86 K/UL = 1067) ABSOLUTE MONOCYTES (test code = 0.60 K/UL 1068) ABSOLUTE EOSINOPHILS (test code 0.16 K/UL = 1040) ABSOLUTE BASOPHILS (test code = 0.03 K/UL 1069) ABS IMMATURE GRANULOCYTES (test 0.02 K/UL code = 1020) ABS NUCLEATED RBCS (test code = 0.00 K/UL 82199) CBC W/AUTO [id number] 00:00:00 Test Item Value Reference Range Interpretation Comments WBC (test code = 1001) 8.2 K/UL RBC (test code = 1002) 4.67 M/UL HEMOGLOBIN (test code = 1003) 12.3 G/DL HEMATOCRIT (test code = 1004) 37.0 % MCV (test code = 1005) 79.2 fL MCH (test code = 1006) 26.3 PG MCHC (test code = 1007) 33.2 G/DL RDW (test code = 1038) 12.5 % NEUTROPHILS (test code = 1008) 67.2 % LYMPHOCYTES (test code = 1010) 22.8 % MONOCYTES (test code = 1011) 7.4 % EOSINOPHILS (test code = 1012) 2.0 % BASOPHILS (test code = 1013) 0.4 % IMMATURE GRANULOCYTES (test 0.2 % code = 1036) NUCLEATED RBCS (test code = 0.0 /100WBC'S 1065) PLATELET COUNT (test code = 239 K/UL 1015) ABSOLUTE NEUTROPHILS (test code 5.48 K/UL = 1066) ABSOLUTE LYMPHOCYTES (test code 1.86 K/UL = 1067) ABSOLUTE MONOCYTES (test code = 0.60 K/UL 1068) ABSOLUTE EOSINOPHILS (test code 0.16 K/UL = 1040) ABSOLUTE BASOPHILS (test code = 0.03 K/UL 1069) ABS IMMATURE GRANULOCYTES (test 0.02 K/UL code = 1020) ABS NUCLEATED RBCS (test code = 0.00 K/UL 84538) OCCULT BLD,FECAL,IMMUNOASSAY [id number] 00:00:00 Test Item Value Reference Range Interpretation Comments OCCULT BLD, FECAL (test code = NEGATIVE 37965) OCCULT BLD,FECAL,IMMUNOASSAY [id number] 00:00:00 Test Item Value Reference Range Interpretation Comments OCCULT BLD, FECAL (test code = NEGATIVE 59179) OCCULT BLD,FECAL,IMMUNOASSAY [id number] 00:00:00 Test Item Value Reference Range Interpretation Comments OCCULT BLD, FECAL (test code = NEGATIVE 92454) OCCULT BLD,FECAL,IMMUNOASSAY [id number] 00:00:00 Test Item Value Reference Range Interpretation Comments OCCULT BLD, FECAL (test code = NEGATIVE 88783) OCCULT BLD,FECAL,IMMUNOASSAY [id number] 00:00:00 Test Item Value Reference Range Interpretation Comments OCCULT BLD, FECAL (test code = NEGATIVE 05395) OCCULT BLD,FECAL,IMMUNOASSAY [id number] 00:00:00 Test Item Value Reference Range Interpretation Comments OCCULT BLD, FECAL (test code = NEGATIVE 46251) OCCULT BLD,FECAL,IMMUNOASSAY [id number] 00:00:00 Test Item Value Reference Range Interpretation Comments OCCULT BLD, FECAL (test code = NEGATIVE 22462) OCCULT BLD,FECAL,IMMUNOASSAY [id number] 00:00:00 Test Item Value Reference Range Interpretation Comments OCCULT BLD, FECAL (test code = NEGATIVE 65819) OCCULT BLD,FECAL,IMMUNOASSAY [id number] 00:00:00 Test Item Value Reference Range Interpretation Comments OCCULT BLD, FECAL (test code = NEGATIVE 59444) OCCULT BLD,FECAL,IMMUNOASSAY [id number] 00:00:00 Test Item Value Reference Range Interpretation Comments OCCULT BLD, FECAL (test code = NEGATIVE 17764) OCCULT BLD,FECAL,IMMUNOASSAY [id number] 00:00:00 Test Item Value Reference Range Interpretation Comments OCCULT BLD, FECAL (test code = NEGATIVE 91535) SARS-CoV-2 (COVID-19) by RT-PCR (HIGH RISK)2020-04-18 00:00:00 Test Item Value Reference Range Interpretation Comments SARS-CoV-2 INTERPRETATION NEGATIVE (test code = 53258) SOURCE (test code = 88923) NASOPHARYNGEAL SARS-CoV-2 (COVID-19) by RT-PCR (HIGH RISK)2020-04-18 00:00:00 Test Item Value Reference Range Interpretation Comments SARS-CoV-2 INTERPRETATION NEGATIVE (test code = 94325) SOURCE (test code = 51758) NASOPHARYNGEAL SARS-CoV-2 (COVID-19) by RT-PCR (HIGH RISK)2020-04-18 00:00:00 Test Item Value Reference Range Interpretation Comments SARS-CoV-2 INTERPRETATION NEGATIVE (test code = 97831) SOURCE (test code = 97131) NASOPHARYNGEAL SARS-CoV-2 (COVID-19) by RT-PCR (HIGH RISK)2020-04-18 00:00:00 Test Item Value Reference Range Interpretation Comments SARS-CoV-2 INTERPRETATION NEGATIVE (test code = 85624) SOURCE (test code = 13847) NASOPHARYNGEAL SARS-CoV-2 (COVID-19) by RT-PCR (HIGH RISK)2020-04-18 00:00:00 Test Item Value Reference Range Interpretation Comments SARS-CoV-2 INTERPRETATION NEGATIVE (test code = 50085) SOURCE (test code = 54027) NASOPHARYNGEAL SARS-CoV-2 (COVID-19) by RT-PCR (HIGH RISK)2020-04-18 00:00:00 Test Item Value Reference Range Interpretation Comments SARS-CoV-2 INTERPRETATION NEGATIVE (test code = 38768) SOURCE (test code = 88139) NASOPHARYNGEAL SARS-CoV-2 (COVID-19) by RT-PCR (HIGH RISK)2020-04-18 00:00:00 Test Item Value Reference Range Interpretation Comments SARS-CoV-2 INTERPRETATION NEGATIVE (test code = 56115) SOURCE (test code = 23817) NASOPHARYNGEAL COMPREHENSIVE METABOLIC [id number] 00:00:00 Test Item Value Reference Range Interpretation Comments GLUCOSE (test code = 2217) 109 MG/DL BUN (test code = 2208) 10 MG/DL CREATININE (test code = 2214) 0.96 MG/DL eGFR AMER. (test code 96 ML/MIN/1.73 = 91194) eGFR NON- AMER. (test 83 ML/MIN/1.73 code = 84739) CALC BUN/CREAT (test code = 10 RATIO 2235) SODIUM (test code = 2231) 134 MEQ/L POTASSIUM (test code = 2228) 4.7 MEQ/L CHLORIDE (test code = 2215) 95 MEQ/L CARBON DIOXIDE (test code = 28 MEQ/L 2205) CALCIUM (test code = 2209) 9.8 MG/DL PROTEIN, TOTAL (test code = 8.1 G/DL 2228) ALBUMIN (test code = 2201) 5.0 G/DL CALC GLOBULIN (test code = 3.1 G/DL 2240) CALC A/G RATIO (test code = 1.6 RATIO 2234) BILIRUBIN, TOTAL (test code = 0.5 MG/DL 2206) ALKALINE PHOSPHATASE (test 66 U/L code = 2204) AST (test code = 2218) 24 U/L ALT (test code = 2219) 28 U/L COMPREHENSIVE METABOLIC [id number] 00:00:00 Test Item Value Reference Range Interpretation Comments GLUCOSE (test code = 221) 109 MG/DL BUN (test code = 2208) 10 MG/DL CREATININE (test code = 2214) 0.96 MG/DL eGFR AMER. (test code 96 ML/MIN/1.73 = 80413) eGFR NON- AMER. (test 83 ML/MIN/1.73 code = 42002) CALC BUN/CREAT (test code = 10 RATIO 2235) SODIUM (test code = 2231) 134 MEQ/L POTASSIUM (test code = 2228) 4.7 MEQ/L CHLORIDE (test code = 2215) 95 MEQ/L CARBON DIOXIDE (test code = 28 MEQ/L 2205) CALCIUM (test code = 2209) 9.8 MG/DL PROTEIN, TOTAL (test code = 8.1 G/DL 2228) ALBUMIN (test code = 2201) 5.0 G/DL CALC GLOBULIN (test code = 3.1 G/DL 2240) CALC A/G RATIO (test code = 1.6 RATIO 2234) BILIRUBIN, TOTAL (test code = 0.5 MG/DL 2206) ALKALINE PHOSPHATASE (test 66 U/L code = 2204) AST (test code = 2218) 24 U/L ALT (test code = 2219) 28 U/L LIPID [id number] 00:00:00 Test Item Value Reference Range Interpretation Comments CHOLESTEROL (test code = 2210) 168 MG/DL TRIGLYCERIDES (test code = 2232) 41 MG/DL HDL CHOLESTEROL (test code = 2220) 67 MG/DL CALC LDL CHOL (test code = 2237) 89 MG/DL RISK RATIO LDL/HDL (test code = 1.33 RATIO 2238) LIPID [id number] 00:00:00 Test Item Value Reference Range Interpretation Comments CHOLESTEROL (test code = 2210) 168 MG/DL TRIGLYCERIDES (test code = 2232) 41 MG/DL HDL CHOLESTEROL (test code = 2220) 67 MG/DL CALC LDL CHOL (test code = 2237) 89 MG/DL RISK RATIO LDL/HDL (test code = 1.33 RATIO 2238) COMPREHENSIVE METABOLIC [id number] 00:00:00 Test Item Value Reference Range Interpretation Comments GLUCOSE (test code = 2217) 109 MG/DL BUN (test code = 2208) 10 MG/DL CREATININE (test code = 2214) 0.96 MG/DL eGFR AMER. (test code 96 ML/MIN/1.73 = 76233) eGFR NON- AMER. (test 83 ML/MIN/1.73 code = 71102) CALC BUN/CREAT (test code = 10 RATIO 2235) SODIUM (test code = 2231) 134 MEQ/L POTASSIUM (test code = 2228) 4.7 MEQ/L CHLORIDE (test code = 2215) 95 MEQ/L CARBON DIOXIDE (test code = 28 MEQ/L 2205) CALCIUM (test code = 2209) 9.8 MG/DL PROTEIN, TOTAL (test code = 8.1 G/DL 2228) ALBUMIN (test code = 2201) 5.0 G/DL CALC GLOBULIN (test code = 3.1 G/DL 2240) CALC A/G RATIO (test code = 1.6 RATIO 2234) BILIRUBIN, TOTAL (test code = 0.5 MG/DL 2206) ALKALINE PHOSPHATASE (test 66 U/L code = 2204) AST (test code = 2218) 24 U/L ALT (test code = 2219) 28 U/L COMPREHENSIVE METABOLIC [id number] 00:00:00 Test Item Value Reference Range Interpretation Comments GLUCOSE (test code = 2217) 109 MG/DL BUN (test code = 2208) 10 MG/DL CREATININE (test code = 2214) 0.96 MG/DL eGFR AMER. (test code 96 ML/MIN/1.73 = 80041) eGFR NON- AMER. (test 83 ML/MIN/1.73 code = 68870) CALC BUN/CREAT (test code = 10 RATIO 2235) SODIUM (test code = 2231) 134 MEQ/L POTASSIUM (test code = 2228) 4.7 MEQ/L CHLORIDE (test code = 2215) 95 MEQ/L CARBON DIOXIDE (test code = 28 MEQ/L 2205) CALCIUM (test code = 2209) 9.8 MG/DL PROTEIN, TOTAL (test code = 8.1 G/DL 2228) ALBUMIN (test code = 220) 5.0 G/DL CALC GLOBULIN (test code = 3.1 G/DL 2239) CALC A/G RATIO (test code = 1.6 RATIO 2234) BILIRUBIN, TOTAL (test code = 0.5 MG/DL 2206) ALKALINE PHOSPHATASE (test 66 U/L code = 2204) AST (test code = 2218) 24 U/L ALT (test code = 2219) 28 U/L LIPID [id number] 00:00:00 Test Item Value Reference Range Interpretation Comments CHOLESTEROL (test code = 2210) 168 MG/DL TRIGLYCERIDES (test code = 2232) 41 MG/DL HDL CHOLESTEROL (test code = 2220) 67 MG/DL CALC LDL CHOL (test code = 2237) 89 MG/DL RISK RATIO LDL/HDL (test code = 1.33 RATIO 2238) LIPID [id number] 00:00:00 Test Item Value Reference Range Interpretation Comments CHOLESTEROL (test code = 2210) 168 MG/DL TRIGLYCERIDES (test code = 2232) 41 MG/DL HDL CHOLESTEROL (test code = 2220) 67 MG/DL CALC LDL CHOL (test code = 2237) 89 MG/DL RISK RATIO LDL/HDL (test code = 1.33 RATIO 2238) LIPID [id number] 00:00:00 Test Item Value Reference Range Interpretation Comments CHOLESTEROL (test code = 2210) 168 MG/DL TRIGLYCERIDES (test code = 2232) 41 MG/DL HDL CHOLESTEROL (test code = 2220) 67 MG/DL CALC LDL CHOL (test code = 2237) 89 MG/DL RISK RATIO LDL/HDL (test code = 1.33 RATIO 2238) COMPREHENSIVE METABOLIC [id number] 00:00:00 Test Item Value Reference Range Interpretation Comments GLUCOSE (test code = 2217) 109 MG/DL BUN (test code = 2208) 10 MG/DL CREATININE (test code = 2214) 0.96 MG/DL eGFR AMER. (test code 96 ML/MIN/1.73 = 68964) eGFR NON- AMER. (test 83 ML/MIN/1.73 code = 32788) CALC BUN/CREAT (test code = 10 RATIO 2235) SODIUM (test code = 2231) 134 MEQ/L POTASSIUM (test code = 2228) 4.7 MEQ/L CHLORIDE (test code = 2215) 95 MEQ/L CARBON DIOXIDE (test code = 28 MEQ/L 220) CALCIUM (test code = 2209) 9.8 MG/DL PROTEIN, TOTAL (test code = 8.1 G/DL 2228) ALBUMIN (test code = 2201) 5.0 G/DL CALC GLOBULIN (test code = 3.1 G/DL 2240) CALC A/G RATIO (test code = 1.6 RATIO 2234) BILIRUBIN, TOTAL (test code = 0.5 MG/DL 2206) ALKALINE PHOSPHATASE (test 66 U/L code = 2204) AST (test code = 2218) 24 U/L ALT (test code = 2219) 28 U/L COMPREHENSIVE METABOLIC [id number] 00:00:00 Test Item Value Reference Range Interpretation Comments GLUCOSE (test code = 2217) 109 MG/DL BUN (test code = 2208) 10 MG/DL CREATININE (test code = 2214) 0.96 MG/DL eGFR AMER. (test code 96 ML/MIN/1.73 = 21455) eGFR NON- AMER. (test 83 ML/MIN/1.73 code = 67412) CALC BUN/CREAT (test code = 10 RATIO 2235) SODIUM (test code = 2231) 134 MEQ/L POTASSIUM (test code = 2228) 4.7 MEQ/L CHLORIDE (test code = 2215) 95 MEQ/L CARBON DIOXIDE (test code = 28 MEQ/L 2206) CALCIUM (test code = 2209) 9.8 MG/DL PROTEIN, TOTAL (test code = 8.1 G/DL 2228) ALBUMIN (test code = 2201) 5.0 G/DL CALC GLOBULIN (test code = 3.1 G/DL 2240) CALC A/G RATIO (test code = 1.6 RATIO 2234) BILIRUBIN, TOTAL (test code = 0.5 MG/DL 2207) ALKALINE PHOSPHATASE (test 66 U/L code = 2204) AST (test code = 2218) 24 U/L ALT (test code = 2219) 28 U/L COMPREHENSIVE METABOLIC [id number] 00:00:00 Test Item Value Reference Range Interpretation Comments GLUCOSE (test code = 2217) 109 MG/DL BUN (test code = 2208) 10 MG/DL CREATININE (test code = 2214) 0.96 MG/DL eGFR AMER. (test code 96 ML/MIN/1.73 = 37558) eGFR NON- AMER. (test 83 ML/MIN/1.73 code = 21667) CALC BUN/CREAT (test code = 10 RATIO 2235) SODIUM (test code = 2231) 134 MEQ/L POTASSIUM (test code = 2228) 4.7 MEQ/L CHLORIDE (test code = 2215) 95 MEQ/L CARBON DIOXIDE (test code = 28 MEQ/L 2205) CALCIUM (test code = 2209) 9.8 MG/DL PROTEIN, TOTAL (test code = 8.1 G/DL 2228) ALBUMIN (test code = 2201) 5.0 G/DL CALC GLOBULIN (test code = 3.1 G/DL 0) CALC A/G RATIO (test code = 1.6 RATIO 4) BILIRUBIN, TOTAL (test code = 0.5 MG/DL 2206) ALKALINE PHOSPHATASE (test 66 U/L code = 2204) AST (test code = 2218) 24 U/L ALT (test code = 2219) 28 U/L LIPID [id number] 00:00:00 Test Item Value Reference Range Interpretation Comments CHOLESTEROL (test code = 2210) 168 MG/DL TRIGLYCERIDES (test code = 2232) 41 MG/DL HDL CHOLESTEROL (test code = 2220) 67 MG/DL CALC LDL CHOL (test code = 2237) 89 MG/DL RISK RATIO LDL/HDL (test code = 1.33 RATIO 2238) LIPID [id number] 00:00:00 Test Item Value Reference Range Interpretation Comments CHOLESTEROL (test code = 2210) 168 MG/DL TRIGLYCERIDES (test code = 2232) 41 MG/DL HDL CHOLESTEROL (test code = 2220) 67 MG/DL CALC LDL CHOL (test code = 2237) 89 MG/DL RISK RATIO LDL/HDL (test code = 1.33 RATIO 2238)
[2022-04-21 13:28] VITALS: BMI 32.7
--- NOTE | 2022-04-21 15:37 | EKG ---
Test Date: 2022-04-18 Test Time: 11:32:12 [employer] Operator: JESSIE MEASUREMENT RESULTS: Intervals: Rate: 79 NH: 192 QRSD: 70 QT: 360 QTc: 412 [place]: P: 77 NH: 192 QRS: 73 T: 104 INTERPRETIVE STATEMENTS: Normal sinus rhythm Septal infarct, age undetermined Abnormal ECG Compared to ECG 09/15/2017 08:57:42 Myocardial infarct finding now present Electronically Signed On 04-21-22 15:32:04 [employer] by Yimi Braxton
[2022-04-22 17:13] VITALS: O2SAT 98
[2022-04-23 12:59] VITALS: BP 124/75; TEMP 97.6
== END 2022-04-23 12:00 | disposition home or self-care (01) ==
LOC: OR 08:20 → 2ND 12:24
PROVIDERS: ADMIT Surgery; ATTEND Surgery
PROC: 0YU60JZ Supplement Left Inguinal Region with Synthetic Substitute, Open Approach (ICD-10-PCS; principal; 2022-04-21 10:00)
DX: K40.91 Unilateral inguinal hernia, without obstruction or gangrene, recurrent (principal); Z20.822 Contact with and (suspected) exposure to COVID-19; I10 Essential (primary) hypertension; I25.10 Atherosclerotic heart disease of native coronary artery without angina pectoris
CPT/HCPCS: 93005; 85025; 80048; 36415 ×2; 94010; 87811; 49520; J2704; J2001; J2250; J3010; J1100; J2710; J7120; J2405; J0690; G0379; G0378 ×3